=== PATIENT | male | born 1940 | race Caucasian/White ===

== ENCOUNTER 2016-10-15 19:29 | Inpatient (IN) ==
[2016-10-15] MEDS ORDERED: DOCUSATE SODIUM 100 MG CAPSULE PO PRN (21:38)
[2016-10-15] MEDS ORDERED: MAGNESIUM SULF RIDER 4 GM in PREMIX 1 EACH IV PRN (21:38)
[2016-10-15] MEDS ORDERED: ONDANSETRON 4 MG/2 ML VIAL IV PRN (21:38)
[2016-10-15] MEDS ORDERED: MAGNESIUM SULF RIDER 2 GM in PREMIX 1 EACH IV PRN (21:38)
[2016-10-15] MEDS ORDERED: POTASSIUM CHLORIDE RIDER 10 MEQ in PREMIX 1 EACH IV PRN (21:38)
[2016-10-15] MEDS ORDERED: MORPHINE 2 MG/1 ML SYRINGE IV PRN (21:38)
[2016-10-15] MEDS ORDERED: ZALEPLON 5 MG CAPSULE PO PRN (21:38)
[2016-10-15] MEDS ORDERED: NITROGLYCERIN SL 0.4 MG TABLET SL PRN (21:41)
[2016-10-15 21:52] LABS: Basophils % 0.3 % (0.0-0.8); Eosinophils # 0.1 10*3/uL (0.0-0.87); Eosinophils % 1.9 % (0.00-10.9); Hematocrit 23.2 VOL% (42.0-52.0); Hemoglobin 7.4 GM/DL (14.0-18.0); Immature Granulocytes % 0.5 %; Immature Granulocytes Absolute 0.03 #; Lymphocytes # 1.5 10*3/uL (1.4-4.0); Lymphocytes % 23.2 % (21.2-54.2); Mean Corpuscular HGB Conc 31.9 GM/DL (32-36); Mean Corpuscular Hemoglobin 20 PG (27-34); Mean Corpuscular Volume 61.9 FL (87-102); Mean Platelet Volume 9.4 FL (9.6-12.0); Monocytes # 0.8 10*3/uL (0.11-0.8); Monocytes % 12.1 % (1.7-12.7); Platelet Count 184 T/CUMM (130-400); Red Blood Count 3.75 MC/CUMM (3.8-5.5); Red Cell Distribution Width 18.6 % (9.3-17.3); White Blood Count 6.4 T/CUMM (4-12)
[2016-10-15 22:15] LABS: Alanine Aminotransferase 19 U/L (16-61); Albumin 3.4 G/DL (3.4-5.0); Alkaline Phosphatase 67 U/L (45-117); Aspartate Amino Transferase 25 U/L (0-37); Bilirubin,Total < 0.39 MG/DL (0.2-1.0); Blood Urea Nitrogen 13 MG/DL (7-18); Calcium 8.6 MG/DL (8.5-10.1); Glucose 98 MG/DL (74-106); Osmolality,Calculated 267.2 MOS/KG (273-304); Potassium 4.3 MMOL/L (3.5-5.1); Sodium 134 MMOL/L (136-145); Total Protein 7.7 G/DL (6.4-8.3)
[2016-10-15 22:16] LABS: Troponin I Only 0.523 NG/ML (0.00-0.045)
[2016-10-16] MEDS: ACETAMINOPHEN 325 MG TABLET PO PRN ×2 (04:52→17:06)
[2016-10-16 05:57] LABS: % Iron Saturation 4.1 % (18-50)
[2016-10-16 05:59] LABS: Cholesterol 125 MG/DL (50-200); HDL Cholesterol 81 MG/DL (40-60); Risk Ratio 1.54; Triglycerides 24 MG/DL (2-150); VLDL CHOLESTEROL 4.8 MG/DL
[2016-10-16 06:16] LABS: Folate 16.8 NG/ML (5.4-24.0)
--- NOTE | 2016-10-16 06:16 | EKG Report ---
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
--- NOTE | 2016-10-16 07:12 | XRay Report ---
XR chest 1V portable Indication: Shortness of breath Comparison: 25 April 2016 Findings: The heart and mediastinum are normal in size and configuration. The pulmonary vascularity is normal in caliber. No lung infiltrates, effusions, pneumothorax or other abnormality is demonstrated. Impression: No acute cardiopulmonary disease. PROCEDURE INTERPRETED AT [facility] DEPARTMENT OF RADIOLOGY Final Report Signed by: Dr. Karlo Ballesteros
--- NOTE | 2016-10-16 07:31 | EKG Report ---
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
[2016-10-16 08:18] LABS: Basophils % 0.4 % (0.0-0.8); Eosinophils # 0.1 10*3/uL (0.0-0.87); Eosinophils % 1.5 % (0.00-10.9); Hematocrit 23.1 VOL% (42.0-52.0); Hemoglobin 7.2 GM/DL (14.0-18.0); Immature Granulocytes % 0.2 %; Immature Granulocytes Absolute 0.01 #; Lymphocytes % 22.1 % (21.2-54.2); Mean Corpuscular HGB Conc 31.2 GM/DL (32-36); Mean Corpuscular Hemoglobin 20 PG (27-34); Mean Corpuscular Volume 63.1 FL (87-102); Mean Platelet Volume 10.4 FL (9.6-12.0); Monocytes # 0.8 10*3/uL (0.11-0.8); Monocytes % 17.3 % (1.7-12.7); Neutrophils # 2.7 10*3/uL (1.4-7.4); Neutrophils % 58.5 % (38.7-73.9); Platelet Count 193 T/CUMM (130-400); Red Blood Count 3.66 MC/CUMM (3.8-5.5); Red Cell Distribution Width 18.6 % (9.3-17.3); White Blood Count 4.6 T/CUMM (4-12)
[2016-10-16] MEDS ORDERED: SODIUM CHLORIDE 0.9% 250 ML IV PRN (08:39)
--- NOTE | 2016-10-16 08:39 | Cardiology History & Physical ---
Assessment and Plan - Time spent with patient Time spent with patient: Greater than 30 minutes (1) Anemia Status: Acute Assessment and plan: SEE PLAN OF CARE LISTED BELOW. Current Visit: Yes Qualifiers: Anemia type: iron deficiency (2) Dyslipidemia Status: Chronic Assessment and plan: SEE PLAN OF CARE LISTED BELOW. Current Visit: Yes (3) Chest pain Status: Acute Assessment and plan: SEE PLAN OF CARE LISTED BELOW. Current Visit: Yes (4) Shortness of breath Status: Acute Assessment and plan: SEE PLAN OF CARE LISTED BELOW. Current Visit: Yes (5) HTN (hypertension) Status: Chronic Assessment and plan: SEE PLAN OF CARE LISTED BELOW. Current Visit: No (6) Diverticulitis Status: Chronic Assessment and plan: SEE PLAN OF CARE LISTED BELOW. Current Visit: Yes (7) GERD (gastroesophageal reflux disease) Status: Chronic Assessment and plan: SEE PLAN OF CARE LISTED BELOW. Current Visit: Yes (8) COPD (chronic obstructive pulmonary disease) Status: Chronic Assessment and plan: SEE PLAN OF CARE LISTED BELOW. Current Visit: No (9) Former smoker Status: Chronic Assessment and plan: SEE PLAN OF CARE LISTED BELOW. Current Visit: Yes (10) Family history of early CAD Status: Chronic Assessment and plan: SEE PLAN OF CARE LISTED BELOW. Current Visit: Yes (11) PAD (peripheral artery disease) Status: Chronic Assessment and plan: SEE PLAN OF CARE LISTED BELOW. Current Visit: Yes History of Present Illness Chief complaint: Chest pain History of present illness: Order Runner: Dr. Cruz Mr. Shen is a 75 year old male with known history of coronary artery disease, routinely followed by Dr. Cruz. Patient has cardiac risk factors significant for hypertension, dyslipidemia, former smoker (quit in 1997) and family history of coronary artery disease (brother had CABG). Patient has past medical history of bilateral carotid artery stenosis, PAD and bilateral lower extremities, COPD, diverticulitis and GI bleeding. Patient's most recent carotid ultrasound was performed March 2016. This revealed mild luminal stenosis of the left proximal internal carotid artery (16-49%. The right internal carotid artery demonstrates no significant luminal stenosis but scattered arthrosclerotic plaque was noted. Patient underwent cardiac stress testing at the [facility] clinic February 2016. This revealed small fixed perfusion abnormality of mild intensity in the apical segment. Likely due to subdiaphragmatic artifact. Left ventricular ejection fraction calculated to be 70% with normal global function. No recent echocardiogram noted. Patient has never underwent cardiac stress testing. Patient was last seen in the cardiology clinic by Dr. Cruz September 2016. Patient was transferred from [place] emergency department for chest pain. He reports that he developed chest pain yesterday while getting ready for jehovah's witness. He describes this pain as a tightness located all across his chest. Radiated down his right arm. Associated with shortness of breath and nausea. Denies diaphoresis, heart racing and palpitations. He is unable to identify any specific alleviating or aggravating factors. He reports that it was not worsened with exertion. This was intermittent for the rest of the day. He reports that his pain was off and on. Then later that night it became progressively worse. Rates his pain an 8 out of 10. He could no longer tolerate the chest discomfort he felt that he needed to be seen in the emergency department. He denies any bright red blood per rectum, melena, abdominal pain, hematochezia, fever, chills, cough, lower extremity edema, orthopnea and PND. He does report a worsening of his dyspnea. He does have COPD and has chronic dyspnea. However, he does confirm that this has been a little worse lately. He presented to [place] ER. No records available from [place] emergency room. No report was given to [facility] staff. Unsure of what medications he received at that facility. However, per patient report his chest pain resolved approximately 30 minutes after receiving nitroglycerin and IV morphine. He has not experienced any recurrent chest pain. He was transferred to [facility] for further evaluation. Patient has been admitted under cardiology's service. Housed in the CCU. Patient was seen and examined in the CCU. He is sitting up in bed in no acute distress. He is without chest pain, heaviness and tightness. Continues to complain of mild shortness of breath. BNP 302. Chest x-ray without overt heart failure. CBC was drawn in our facility and revealed severe anemia. H&H 7.4 and 23.2. Patient denies any bright red blood per rectum or recent melena. He does report that he has had this problem in the past and had significant GI workup completed in April. He underwent EGD and C scope. C scope revealed diverticulitis. EGD revealed GERD and mild gastritis. Patient has profound anemia with H&H of 7 and 23. This explains patient's shortness of breath as well as elevated troponin. I will transfuse patient with 2 units of packed red blood cells. Check stool for occult blood. Anemia profile. Consult GI. Will continue to cycle cardiac biomarkers and EKG. Once his anemia improves if patient continues to have complaints of chest pain. We can consider further cardiac workup at that time. N.p.o. until seen by gastroenterology. Will discuss with Dr. Calderon and await his additional recommendations. ASSESSMENT/PLAN 1. SYMPTOMATIC ANEMIA WITH DEMAND ISCHEMIA - Patient has profound anemia with H&H of 7 and 23. This explains patient's shortness of breath as well as elevated troponin. I will transfuse patient with 2 units of packed red blood cells. Check stool for occult blood. Anemia profile. Consult GI. Will continue to cycle cardiac biomarkers and EKG. Once his anemia improves if patient continues to have complaints of chest pain. We can consider further cardiac workup at that time. N.p.o. until seen by gastroenterology. I will discuss with Dr. Calderon and await his additional recommendations. 2. HISTORY OF DIVERTICULITIS - Defer management to gastroenterology. 3. HYPERTENSION - Under well control. Will reinitiate patient's home medications and adjust as needed this hospitalization. 4. DYSLIPIDEMIA - Lipid lowering agent has been continued. Lipid panel in the morning. 5. HISTORY OF GERD - Continue PPI 6. HISTORY OF COPD - Clinically stable at present. 7. FORMER SMOKER - Quit in 1997. 8. FAMILY HISTORY OF CAD - Brother had CABG. 9. HISTORY OF PERIPHERAL ARTERY DISEASE - Followed by Dr. Cruz. Clinically stable at present. Continue current plan of care. Home Medications Medication Instructions Recorded Confirmed Type Aspirin EC Tab 81 mg PO DAILY 04/25/16 04/25/16 History Atorvastatin [Lipitor] 40 mg PO DAILY 04/25/16 04/25/16 History Magnesium 250 mg PO DAILY 04/25/16 04/25/16 History Omeprazole [Prilosec] 20 mg PO BID 04/25/16 04/25/16 History Timolol 0.5% Oph Soln [Timoptic 1 drop BOTH EYES DAILY 04/25/16 04/25/16 History 0.5%] Tiotropium Inhalation [Spiriva 18 mcg INH DAILY 04/25/16 04/25/16 History Handihaler] Valsartan [Diovan] 320 mg PO DAILY 04/25/16 04/25/16 History amLODIPine [Norvasc] 5 mg PO DAILY 04/25/16 04/25/16 History amLODIPine [Norvasc] 10 mg PO DAILY 04/25/16 04/25/16 History Pantoprazole Tab [Protonix Tab] 40 mg PO DAILY #30 tablet 05/01/16 Rx Allergies Allergy/AdvReac Type Severity Reaction Status Date / Time No Known Allergies Allergy Verified 04/25/16 07:39 - Constitutional Constitutional: Present: as per HPI, fatigue, lethargy, malaise, weakness. Absent: chills, fever(s), weight gain, weight loss - Cardiovascular Cardiovascular: Present: as per HPI, chest pain at rest, dyspnea, dyspnea on exertion, radiating jaw, neck or arm pain. Absent: diaphoresis, edema, orthopnea, palpitations, PND - Respiratory Respiratory: Present: as per HPI, dyspnea, dyspnea on exertion. Absent: cough, hemoptysis, pain on inspiration, change in phlegm color - Gastrointestinal Gastrointestinal: Present: as per HPI, heartburn, nausea. Absent: abdominal pain, coffee ground emesis, constipation, cramping, diarrhea, hematemesis, hematochezia, loose stools, melena, vomiting Medical,Surgical,& Family Hx - Medical History Cardio: History of: Hypertension Endocrine: History of: Dyslipidemia Rheumatology: History of;: Rheumatoid Arthritis Respiratory: History of: COPD Gastrointestinal: History of: Diverticulitis/ Diverticulosis, GERD, Polyps - Surgical History Abdominal Surgeries: Surgical HX of: Appendectomy - Family History Family History: Reports;: Family Cancer (father), Family Heart Disease, Family Hypertension - Social History Smoking Status: Former smoker Frequency of Alcohol Use: None Type of Drug Use: None Marital Status: Lives With:: Spouse Functional capacity: independent ambulation Cardiology Physical Exam - Constitutional Vitals: Vital Signs Temp Pulse Resp BP Pulse Ox 99.3 F 94 H 16 115/68 97 10/16/16 08:00 10/16/16 08:00 10/16/16 08:00 10/16/16 08:00 10/16/16 08:00 Intake and Output 10/15/16 10/16/16 10/16/16 22:59 06:59 14:59 Output Total 1400 / 1400 Balance -1400 / -1400 Output: Urine 1400 / 1400 Other: Voiding Method Toilet Urinal # Voids 0 2 # Bowel Movements 0 Weight 172 lb 9.951 oz 175 lb 0.752 oz Exam: General: Appears well with no apparent distress. Pleasant and cooperative. Appears comfortable. HEENT: PERRL, normocephalic, atraumatic. Mucous membranes moist. No jaundice noted. Conjunctiva moist and clear, sclerae anicteric Neck: No JVD/HJR, no thyromegaly or lymphadenopathy noted. No carotid bruit appreciated Cardiac: Regular rate and rhythm. Lungs: Clear to auscultation without accessory muscle use to assist the respiratory pattern. Oxygen via nasal cannula Abdomen: Soft, bowel sounds normoactive. Nontender and nondistended. No abdominal bruit or thrill noted. No masses noted. Extremities: No clubbing, cyanosis noted. No edema noted. Upper extremity pulses 2+. Lower extremity pulses 1+. Capillary refill less than 3 seconds. Skin: No unusual lesions or rashes. No skin breakdown appreciated. Neuro: Awake, alert and oriented 3. Moves all extremities well without hemiparesis or paralysis. No essential tremor is appreciated. Result/EKG - Labs CBC & BMP: 10/16/16 04:31 10/15/16 21:48 Lab Results: I have reviewed the past 24 hour labs Labs: Laboratory Results - last 24 hr 10/15/16 10/15/16 10/15/16 21:48 21:48 21:48 WBC 6.4 RBC 3.75 L Hgb 7.4 L Hct 23.2 L MCV 61.9 L MCH 20 L MCHC 31.9 L RDW 18.6 H Plt Count 184 MPV 9.4 L Neut % (Auto) 62.0 Lymph % (Auto) 23.2 Ness % (Auto) 12.1 Eos % (Auto) 1.9 Baso % (Auto) 0.3 Neut # (Auto) 4.0 Lymph # (Auto) 1.5 Ness # (Auto) 0.8 Eos # (Auto) 0.1 Baso # (Auto) 0.0 Immature Gran % 0.5 Nucleated RBC % 0.0 Immature Gran # 0.03 Nucleated RBCs # 0.00 Immature Plt Fraction 0.0 Absolute Retic Percent Retic Retic Hgb Equivalent Sodium 134 L Potassium 4.3 Chloride 99 Carbon Dioxide 24 Anion Gap 15.3 H BUN 13 Creatinine 0.70 GFR Calculation 106 BUN/Creatinine Ratio 18.00 Glucose 98 Calculated Osmolality 267.2 L Calcium 8.6 Magnesium 2.0 Iron TIBC % Saturation Ferritin Total Bilirubin < 0.39 AST 25 ALT 19 Alkaline Phosphatase 67 Total Creatine Kinase 67 CK-MB (CK-2) 2.0 Troponin I 0.523 H B-Natriuretic Peptide Total Protein 7.7 Albumin 3.4 Globulin 4.3 H Albumin/Globulin Ratio 0.7 L Triglycerides Cholesterol LDL Cholesterol VLDL Cholesterol HDL Cholesterol Heart Disease Risk Ratio Vitamin B12 Folate Blood Type Antibody Screen 10/15/16 10/16/16 10/16/16 21:48 04:30 04:31 WBC RBC Hgb Hct MCV MCH MCHC RDW Plt Count MPV Neut % (Auto) Lymph % (Auto) Ness % (Auto) Eos % (Auto) Baso % (Auto) Neut # (Auto) Lymph # (Auto) Ness # (Auto) Eos # (Auto) Baso # (Auto) Immature Gran % Nucleated RBC % Immature Gran # Nucleated RBCs # Immature Plt Fraction Absolute Retic 0.0 Percent Retic 1.2 Retic Hgb Equivalent 20.3 L Sodium Potassium Chloride Carbon Dioxide Anion Gap BUN Creatinine GFR Calculation BUN/Creatinine Ratio Glucose Calculated Osmolality Calcium Magnesium Iron TIBC % Saturation Ferritin Total Bilirubin AST ALT Alkaline Phosphatase Total Creatine Kinase CK-MB (CK-2) Troponin I B-Natriuretic Peptide 302 H Total Protein Albumin Globulin Albumin/Globulin Ratio Triglycerides Cholesterol LDL Cholesterol VLDL Cholesterol HDL Cholesterol Heart Disease Risk Ratio Vitamin B12 Folate Blood Type A NEGATIVE Antibody Screen Negative 10/16/16 10/16/16 10/16/16 04:31 04:31 04:31 WBC RBC Hgb Hct MCV MCH MCHC RDW Plt Count MPV Neut % (Auto) Lymph % (Auto) Ness % (Auto) Eos % (Auto) Baso % (Auto) Neut # (Auto) Lymph # (Auto) Ness # (Auto) Eos # (Auto) Baso # (Auto) Immature Gran % Nucleated RBC % Immature Gran # Nucleated RBCs # Immature Plt Fraction Absolute Retic Percent Retic Retic Hgb Equivalent Sodium Potassium Chloride Carbon Dioxide Anion Gap BUN Creatinine GFR Calculation BUN/Creatinine Ratio Glucose Calculated Osmolality Calcium Magnesium Iron 15 L TIBC 370 % Saturation 4.1 L Ferritin 15.0 L Total Bilirubin AST ALT Alkaline Phosphatase Total Creatine Kinase 55 CK-MB (CK-2) 2.5 Troponin I 1.400 H D B-Natriuretic Peptide Total Protein Albumin Globulin Albumin/Globulin Ratio Triglycerides 24 Cholesterol 125 LDL Cholesterol 39.0 VLDL Cholesterol 4.8 HDL Cholesterol 81 H Heart Disease Risk Ratio 1.54 Vitamin B12 199 L Folate 16.8 Blood Type Antibody Screen 10/16/16 10/16/16 04:31 04:31 WBC 4.6 RBC 3.66 L Hgb 7.2 L Hct 23.1 L MCV 63.1 L MCH 20 L MCHC 31.2 L RDW 18.6 H Plt Count 193 MPV 10.4 Neut % (Auto) 58.5 Lymph % (Auto) 22.1 Ness % (Auto) 17.3 H Eos % (Auto) 1.5 Baso % (Auto) 0.4 Neut # (Auto) 2.7 Lymph # (Auto) 1.0 L Ness # (Auto) 0.8 Eos # (Auto) 0.1 Baso # (Auto) 0.0 Immature Gran % 0.2 Nucleated RBC % 0.0 Immature Gran # 0.01 Nucleated RBCs # 0.00 Immature Plt Fraction 4.3 Absolute Retic 0.0 Percent Retic 1.3 Retic Hgb Equivalent 20.3 L Sodium Potassium Chloride Carbon Dioxide Anion Gap BUN Creatinine GFR Calculation BUN/Creatinine Ratio Glucose Calculated Osmolality Calcium Magnesium Iron TIBC % Saturation Ferritin 15.3 L Total Bilirubin AST ALT Alkaline Phosphatase Total Creatine Kinase CK-MB (CK-2) Troponin I B-Natriuretic Peptide Total Protein Albumin Globulin Albumin/Globulin Ratio Triglycerides Cholesterol LDL Cholesterol VLDL Cholesterol HDL Cholesterol Heart Disease Risk Ratio Vitamin B12 Folate Blood Type Antibody Screen
[2016-10-16 08:42] LABS: Folate 15.7 NG/ML (5.4-24.0); Vitamin B12 194 PG/ML (211-911)
[2016-10-16] MEDS ORDERED: PANTOPRAZOLE 40 MG TABLET PO SCH (09:00)
[2016-10-16 09:34] LABS: Sedimentation Rate-Westergren 59 MM/HR (0-20)
[2016-10-16] MEDS: PANTOPRAZOLE 40 MG TABLET PO SCH ×2 (10:00→20:25)
[2016-10-16 10:06] LABS: Band Neutrophils 1 % (0-10); Hypochromasia 2+; Lymphocytes 24 % (20-55); Segmented Neutrophils 63 % (50-85); Total Cells Counted 100
[2016-10-16 10:07] LABS: Microcytosis 1+; Platelet Estimate Adequate; Target Cells Slight
--- NOTE | 2016-10-16 12:10 | Gastrointestinal Consult Note ---
<Fide Reyes - Last Filed: 10/16/16 11:49> Assessment and Plan (1) Anemia Status: Acute Assessment and plan: 10/16-onset of chest pain with nausea and radiation down arms with findings on admission of anemia with H&H of 09/28. Being transfused 2 units of packed red blood cells. Prior history of anemia and diverticular bleeding in the past. Recent endoscopy done in April of this year. Keep patient n.p.o. at present time and will proceed with small bowel pill camera endoscopy today. May resume diet post PillCam. Plan an addendum to follow by Dr. Pro. Current Visit: Yes Qualifiers: Anemia type: iron deficiency History of Present Illness Chief complaint: Anemia, chest pain History of present illness: Mr. Shen is a 75 year old male who was admitted to the hospital today following transfer from [place] emergency room with onset of chest pain. Patient states that he was in his usual state of health until last night when he had a sudden onset of chest tightness with shortness of breath and nausea. He states the pain also radiated down his arm at that time. Patient is unable to recall any precipitating factors prior to the onset of the pain. He states after the onset of the pain, it became more intermittent throughout the day however last night the pain returned and was worse in severity. He then proceeded to walk into the emergency room for further evaluation. He has a prior history of hypertension, COPD, dyslipidemia, and PAD. He also has a prior history of diverticulitis and GI bleeding. Upon arrival to [place], he was given nitroglycerin and morphine and his pain was alleviated at that time. Since arrival to our facility he has been evaluated by cardiology. He was also found on admission to have an H&H of 09/28. Iron studies have been done today noted to have an iron of 15, TIBC of 370, saturation of 4.1, and a ferritin of 15.3. He is currently receiving 2 units of packed red blood cells. He was seen in our facility in April of this year with a rectal bleed at that time underwent colonoscopy with no bleeding source identified at that time however he had a poor prep. This was repeated the second day and findings at that time of diverticulosis which was felt to be the likely source of bleeding as well as colon polyp with pathology of tubular adenoma. He also underwent EGD at that time with findings of GERD, mild gastritis. He had plans upon discharge for small bowel series however this unfortunately was not done outpatient as planned. His discharge H&H in April was noted at 12/05. He does not take any anticoagulants and denies any NSAID use. Noted to take Prilosec daily and denies any increase dyspepsia or upper GI discomfort. Home Medications Medication Instructions Recorded Confirmed Type Aspirin EC Tab 81 mg PO DAILY 04/25/16 10/16/16 History Atorvastatin [Lipitor] 40 mg PO DAILY 04/25/16 10/16/16 History Magnesium 250 mg PO DAILY 04/25/16 10/16/16 History Omeprazole [Prilosec] 20 mg PO BID 04/25/16 10/16/16 History Timolol 0.5% Oph Soln [Timoptic 1 drop BOTH EYES DAILY 04/25/16 10/16/16 History 0.5%] Tiotropium Inhalation [Spiriva 18 mcg INH DAILY 04/25/16 10/16/16 History Handihaler] Valsartan [Diovan] 320 mg PO DAILY 04/25/16 10/16/16 History amLODIPine [Norvasc] 10 mg PO DAILY 04/25/16 10/16/16 History Allergies Allergy/AdvReac Type Severity Reaction Status Date / Time No Known Allergies Allergy Verified 04/25/16 07:39 Medical,Surgical,& Family Hx - Medical History Cardio: History of: Hypertension Endocrine: History of: Dyslipidemia Rheumatology: History of;: Rheumatoid Arthritis Respiratory: History of: COPD Gastrointestinal: History of: Diverticulitis/ Diverticulosis, GERD, Polyps - Surgical History Abdominal Surgeries: Surgical HX of: Appendectomy - Family History Family History: Reports;: Family Cancer (father), Family Heart Disease, Family Hypertension - Social History Smoking Status: Former smoker Frequency of Alcohol Use: None Type of Drug Use: None 12 point system: reviewed and no additional remarkable complaints except as stated - Constitutional Constitutional: Present: as per HPI - EENT Eyes: Present: as per HPI Ears: Present: as per HPI Nose, mouth and throat: Present: as per HPI - Cardiovascular Cardiovascular: Present: as per HPI, chest pain at rest - Respiratory Respiratory: Present: as per HPI - Gastrointestinal Gastrointestinal: Present: as per HPI, nausea - Genitourinary Genitourinary: Present: as per HPI - Musculoskeletal Musculoskeletal: Present: as per HPI - Neurological Neurological: Present: as per HPI - Psychiatric Psychiatric: Present: as per HPI - Endocrine Endocrine: Present: as per HPI - Hematologic/Lymphatic Hematologic/Lymphatic: Present: as per HPI Exam - Constitutional Vitals: Period Temp Pulse Resp BP Sys/Joya Pulse Ox Last 24 Hr 99.3 F-99.8 F 89-104 16-21 100-142/60-86 97-100 General appearance: normal weight, no acute distress - Head Head exam: Present: normal inspection, normocephalic - Eye Eye exam: Present: other (Lids and conjunctive are unremarkable). Absent: scleral icterus - ENT ENT exam: Present: normal exam, normal oropharynx - Neck Neck exam: Present: normal inspection - Respiratory Respiratory exam: Present: clear to auscultation bilaterally. Absent: rales, rhonchi, wheezes - Cardiovascular Cardiovascular exam: Present: regular rate and rhythm. Absent: diastolic murmur , JVD, systolic murmur - GI/Abdominal GI/Abdominal exam: Present: normal bowel sounds, soft. Absent: ascites, distended, mass, organomegaly, tenderness - Extremities Exam Extremities exam: Present: normal inspection, full ROM - Back Exam Back exam: Present: normal inspection - Neurological Exam Neurological exam: Present: alert, oriented X3 - Psychiatric Psychiatric exam: Present: normal affect, normal mood - Skin Skin exam: Present: normal color, warm, dry Results - Labs CBC & BMP: 10/16/16 04:31 10/15/16 21:48 Lab Results: I have reviewed the past 24 hour labs Specialty Discharge - Follow Up or Referrals <Jeovanny Pro - Last Filed: 10/16/16 17:14> History of Present Illness History of present illness: Mr. Shen is a 75 year old male Exam - Constitutional Vitals: Period Temp Pulse Resp BP Sys/Joya Pulse Ox Last 24 Hr 99.2 F-100.2 F 77-104 16-21 100-153/60-87 97-100 Results - Labs CBC & BMP: 10/16/16 15:18 10/15/16 21:48
[2016-10-16 12:47] LABS: Apearance,Urine CLEAR (Clear); Bilirubin,Urine Negative (Negative); Blood, Urine Negative (Negative); Glucose,Urine (UA) Negative (Negative); Ketones,Urine 5 mg/dL (Negative); Nitrite,Urine Negative (Negative); Protein,Urine Negative; Squamous Epithelial Cell,Urine Occasional /HPF (0-10); Urine Color Straw (Yellow); Urine Specific Gravity 1.009 (1.001-1.035); Urine Urobilinogen < 2.0 EU/DL (0.2-1.0)
--- NOTE | 2016-10-16 13:58 | ECHO Report ---
Edward Shen Exam Date: 10/16/2016 09:30 Referring Physician: Technologist: Age: 75 Ht (in): Wt (lb): Gender: M Exam Location: [facility] Echo Indications: BP: / HR: Rhythm: Sinus Technical Quality: IMPRESSIONS Normal left ventricular size, with mild concentric hypertrophy, with normal systolic function. Estimated left ventricular ejection fraction 60%. Grade 1 diastolic dysfunction. The left atrium is mildly dilated. Mildly thickened mitral valve, with mild eccentric regurgitation, without stenosis. Aortic valve sclerosis, without stenosis, with mild insufficiency MEASUREMENTS (Male / Female) Normal Values 2D ECHO LV Diastolic Diameter PLAX 3.8 cm 4.2 - 5.9 / 3.9 - 5.3 cm LV Systolic Diameter PLAX 3.2 cm LV Fractional Shortening PLAX 16.5 % IVS Diastolic Thickness 0.9 cm 0.6 - 1.0 / 0.6 - 0.9 cm LVPW Diastolic Thickness 1.2 cm 0.6 - 1.0 / 0.6 - 0.9 cm RV Internal Dim ED PLAX 2.7 cm Aortic Root Diameter 3.2 cm LA Systolic Diameter LX 4.1 cm 3.0 - 4.0 / 2.7 - 3.8 cm DOPPLER TR Peak Velocity 175.0 cm/s TR Peak Gradient 12.3 mmHg FINDINGS Left Ventricle Normal left ventricular size, with mild concentric hypertrophy, with normal systolic function. Estimated left ventricular ejection fraction 60%. Grade 1 diastolic dysfunction. Right Ventricle The right ventricle is normal in size, with normal systolic function Right Atrium The right atrium is normal in size. Left Atrium The left atrium is mildly dilated. Mitral Valve Mildly thickened mitral valve, with mild eccentric regurgitation, without stenosis. Aortic Valve Aortic valve sclerosis, without stenosis, with a mild insufficiency Tricuspid Valve Structurally normal tricuspid valve, with trace insufficiency. Insufficient signal to estimate pulmonary artery systolic pressure. Pulmonic Valve The pulmonic valve is not well visualized. Pericardium No pericardial effusion. Aorta The aortic root is of normal size. Edgar Calderon (Electronically Signed) Final Date: 16 October 2016 13:57
[2016-10-16] MEDS: METOPROLOL TARTRATE 50 MG TABLET PO SCH ×2 (14:12→20:25)
[2016-10-16] MEDS: ATORVASTATIN 40 MG TABLET PO SCH (14:12)
[2016-10-16 15:22] LABS: Hematocrit 28.7 VOL% (42.0-52.0); Hemoglobin 9.4 GM/DL (14.0-18.0)
[2016-10-16] MEDS: MULTIVITAMIN (BEROCCA) TABLET PO SCH (17:06)
[2016-10-16] MEDS: FERROUS SULFATE 325 MG TABLET PO SCH (20:25)
[2016-10-17 04:49] LABS: Basophils % 0.7 % (0.0-0.8); Eosinophils # 0.2 10*3/uL (0.0-0.87); Eosinophils % 2.9 % (0.00-10.9); Hemoglobin 9.6 GM/DL (14.0-18.0); Immature Granulocytes % 0.4 %; Immature Granulocytes Absolute 0.02 #; Lymphocytes # 1.4 10*3/uL (1.4-4.0); Lymphocytes % 25.3 % (21.2-54.2); Mean Corpuscular Hemoglobin 21 PG (27-34); Mean Corpuscular Volume 66.7 FL (87-102); Mean Platelet Volume 9.7 FL (9.6-12.0); Monocytes # 0.8 10*3/uL (0.11-0.8); Monocytes % 15.4 % (1.7-12.7); Neutrophils % 55.3 % (38.7-73.9); Platelet Count 179 T/CUMM (130-400); Red Cell Distribution Width 21.6 % (9.3-17.3); White Blood Count 5.5 T/CUMM (4-12)
[2016-10-17 05:09] LABS: Magnesium 2.2 MG/DL (1.8-2.4); Osmolality,Calculated 265.2 MOS/KG (273-304); Potassium 4.3 MMOL/L (3.5-5.1)
[2016-10-17 06:10] LABS: Hypochromasia 1+; Lymphocytes 25 % (20-55); Segmented Neutrophils 66 % (50-85); Total Cells Counted 100
[2016-10-17 06:11] LABS: Microcytosis 1+
[2016-10-17] MEDS: IPRATROPIUM 500 MCG/2.5 ML NEB RESP TX SCH ×4 (08:36→19:34)
--- NOTE | 2016-10-17 10:01 | Gastrointestinal Progress Note ---
<AmyFide Alcides - Last Filed: 10/17/16 09:58> Assessment and Plan (1) Anemia Status: Acute Assessment and plan: 10/17-H&H stable 12/03 following transfusion. No overt bleeding. Small bowel, results pending. Further plan and addendum to follow by Dr Pro. 10/16-onset of chest pain with nausea and radiation down arms with findings on admission of anemia with H&H of 09/28. Being transfused 2 units of packed red blood cells. Prior history of anemia and diverticular bleeding in the past. Recent endoscopy done in April of this year. Keep patient n.p.o. at present time and will proceed with small bowel pill camera endoscopy today. May resume diet post PillCam. Plan an addendum to follow by Dr. Pro. Current Visit: Yes Qualifiers: Anemia type: iron deficiency Gastroenterology - PN: Subj Interval history: CC: Anemia Patient is seen awake and alert. States he had an uneventful night. Denies any abdominal pain. Denies any nausea or vomiting or overt bleeding. Abdomen is soft, nontender. H&H is stable at 12/06 following 2 units of packed red blood cells on yesterday. Small bowel camera results are currently pending at this time. He is tolerating his diet well. Stools for occult blood are still pending as well. ROS: Denies shortness of breath or chest pain Exam (Progress Note) - Constitutional Vitals: Period Temp Pulse Resp BP Sys/Joya Pulse Ox Last 24 Hr 97.8 F-100.2 F 75-104 16-21 121-153/64-87 96-100 General appearance: normal weight, no acute distress - Head Head exam: Present: normal inspection, normocephalic - Eye Eye exam: Present: other (Lids and identified unremarkable). Absent: scleral icterus - ENT ENT exam: Present: normal exam, normal oropharynx - Neck Neck exam: Present: normal inspection - Respiratory Respiratory exam: Present: clear to auscultation bilaterally. Absent: rales, rhonchi, wheezes - Cardiovascular Cardiovascular exam: Present: regular rate and rhythm. Absent: diastolic murmur , JVD, systolic murmur - GI/Abdominal GI/Abdominal exam: Present: normal bowel sounds, soft. Absent: ascites, distended, mass, organomegaly, tenderness - Extremities Exam Extremities exam: Present: normal inspection, full ROM - Back Exam Back exam: Present: normal inspection - Neurological Exam Neurological exam: Present: alert, oriented X3 - Psychiatric Psychiatric exam: Present: normal affect, normal mood - Skin Skin exam: Present: normal color, warm, dry Results - Labs CBC & BMP: 10/17/16 04:14 10/17/16 04:14 Lab Results: I have reviewed the past 24 hour labs Specialty Discharge - Follow Up or Referrals <Jeovanny Pro - Last Filed: 10/17/16 14:33> Exam (Progress Note) - Constitutional Vitals: Period Temp Pulse Resp BP Sys/Joya Pulse Ox Last 24 Hr 97.8 F-100.2 F 69-95 16-21 121-153/64-87 96-100 Results - Labs CBC & BMP: 10/17/16 04:14 10/17/16 04:14
[2016-10-17] MEDS: ATORVASTATIN 40 MG TABLET PO SCH (10:55)
[2016-10-17] MEDS: FERROUS SULFATE 325 MG TABLET PO SCH ×3 (10:56→21:14)
[2016-10-17] MEDS: VALSARTAN 160 MG TABLET PO SCH (10:56)
[2016-10-17] MEDS: MULTIVITAMIN (BEROCCA) TABLET PO SCH (10:56)
[2016-10-17] MEDS: MAGNESIUM GLUCONATE 500 MG TABLET PO SCH (10:57)
[2016-10-17] MEDS: amLODIPine 10 MG TABLET PO SCH (10:57)
[2016-10-17] MEDS: ASPIRIN EC 81 MG TABLET PO SCH (10:57)
[2016-10-17] MEDS: METOPROLOL TARTRATE 50 MG TABLET PO SCH ×2 (10:58→21:14)
[2016-10-17] MEDS: PANTOPRAZOLE 40 MG TABLET PO SCH ×2 (10:58→21:14)
--- NOTE | 2016-10-17 11:32 | Cardiology Progress Note ---
Assessment and Plan (1) Anemia Status: Acute Assessment and plan: SEE PLAN OF CARE LISTED BELOW. Current Visit: Yes Qualifiers: Anemia type: iron deficiency (2) Dyslipidemia Status: Chronic Assessment and plan: SEE PLAN OF CARE LISTED BELOW. Current Visit: Yes (3) Chest pain Status: Acute Assessment and plan: SEE PLAN OF CARE LISTED BELOW. Current Visit: Yes (4) Shortness of breath Status: Acute Assessment and plan: SEE PLAN OF CARE LISTED BELOW. Current Visit: Yes (5) HTN (hypertension) Status: Chronic Assessment and plan: SEE PLAN OF CARE LISTED BELOW. Current Visit: No (6) Diverticulitis Status: Chronic Assessment and plan: SEE PLAN OF CARE LISTED BELOW. Current Visit: Yes (7) GERD (gastroesophageal reflux disease) Status: Chronic Assessment and plan: SEE PLAN OF CARE LISTED BELOW. Current Visit: Yes (8) COPD (chronic obstructive pulmonary disease) Status: Chronic Assessment and plan: SEE PLAN OF CARE LISTED BELOW. Current Visit: No (9) Former smoker Status: Chronic Assessment and plan: SEE PLAN OF CARE LISTED BELOW. Current Visit: Yes (10) Family history of early CAD Status: Chronic Assessment and plan: SEE PLAN OF CARE LISTED BELOW. Current Visit: Yes (11) PAD (peripheral artery disease) Status: Chronic Assessment and plan: SEE PLAN OF CARE LISTED BELOW. Current Visit: Yes Cardiology - PN: Subj Interval history: Obstetrics And Gynecology Professor: Dr. Cruz SUMMARY Mr. Shen is a 75 year old male with known history of coronary artery disease , routinely followed by Dr. Cruz. Patient has cardiac risk factors significant for hypertension, dyslipidemia, former smoker (quit in 1997) and family history of coronary artery disease (brother had CABG). Patient has past medical history of bilateral carotid artery stenosis, PAD and bilateral lower extremities, COPD, diverticulitis and GI bleeding. Patient's most recent carotid ultrasound was performed March 2016. This revealed mild luminal stenosis of the left proximal internal carotid artery (16-49%. The right internal carotid artery demonstrates no significant luminal stenosis but scattered arthrosclerotic plaque was noted. Patient underwent cardiac stress testing at the [facility] clinic February 2016. This revealed small fixed perfusion abnormality of mild intensity in the apical segment. Likely due to subdiaphragmatic artifact. Left ventricular ejection fraction calculated to be 70% with normal global function. No recent echocardiogram noted. Patient has never underwent cardiac stress testing. Patient was last seen in the cardiology clinic by Dr. Cruz September 2016. He does report that he has had this problem in the past and had significant GI workup completed in April. He underwent EGD and C scope. C scope revealed diverticulitis. EGD revealed GERD and mild gastritis. Patient was transferred from [place] emergency department for chest pain. Upon arrival to our facility he was noted to have profound anemia, H&H 7 and 23. His chest pain was thought to be secondary to demand ischemia. Troponin bumped to 2.0. Patient was given two units of PRBC's yesterday. GI was consulted. Patient had small bowel pill cam yesterday. Results pending. OCTOBER 17, 2016 Patient was seen and examined on the tele unit. He is doing well today and is without complaints. He denies any recurrent chest pain, heaviness or tightness after receiving two units of PRBCs yesterday. H and H improved today to 9.6 and 30.0. Stool for occult blood is pending. Patient reports that he has not had BM this hospitalization. Patient had small bowel pill cam yesterday. Results pending. Troponin peaked at 2.0 yesterday. Now trending down, 1.8 today. This is not ACS. Suspect demand ischemic from profound anemia. Labs have been reviewed. Vitals stable. Will discuss with Dr. Calderon and await his additional recommendations. ASSESSMENT/PLAN 1. SYMPTOMATIC ANEMIA WITH DEMAND ISCHEMIA - H&H improved today to 9.6 and 30.0 after 2 units of PRBCs yesterday. Stool for occult blood is pending. Patient had small bowel pill cam yesterday. Results pending. Troponin peaked at 2.0 yesterday. Now trending down, 1.8 today. This is not ACS. Suspect demand ischemic from profound anemia. Denies any recurrent chest pain. If patient has recurrent complaints of chest pain now that his anemia has improved , we can consider further cardiac workup. Continue to monitor with daily CBC and transfuse as needed. 2. HISTORY OF DIVERTICULITIS - Defer management to gastroenterology. 3. HYPERTENSION - Under well control. Continue current plan of care. Monitor BP and adjust as needed this hospitalization. 4. DYSLIPIDEMIA - Lipid lowering agent has been continued. Lipid panel reviewed. LDL 39 5. HISTORY OF GERD - Continue PPI 6. HISTORY OF COPD - Clinically stable at present. 7. FORMER SMOKER - Quit in 1997. 8. FAMILY HISTORY OF CAD - Brother had CABG. 9. HISTORY OF PERIPHERAL ARTERY DISEASE - Followed by Dr. Cruz. Clinically stable at present. Continue current plan of care. Exam (Progress Note) - Constitutional Vitals: Period Temp Pulse Resp BP Sys/Joya Pulse Ox Last 24 Hr 97.8 F-100.2 F 75-104 16-21 121-153/64-87 96-100 Exam: General: Appears well with no apparent distress. Pleasant and cooperative. Appears comfortable. HEENT: PERRL, normocephalic, atraumatic. Mucous membranes moist. No jaundice noted. Conjunctiva moist and clear, sclerae anicteric Neck: No JVD/HJR, no thyromegaly or lymphadenopathy noted. No carotid bruit appreciated Cardiac: Regular rate and rhythm. Lungs: Clear to auscultation without accessory muscle use to assist the respiratory pattern. Oxygen via nasal cannula Abdomen: Soft, bowel sounds normoactive. Nontender and nondistended. No abdominal bruit or thrill noted. No masses noted. Extremities: No clubbing, cyanosis noted. No edema noted. Upper extremity pulses 2+. Lower extremity pulses 1+. Capillary refill less than 3 seconds. Skin: No unusual lesions or rashes. No skin breakdown appreciated. Neuro: Awake, alert and oriented 3. Moves all extremities well without hemiparesis or paralysis. No essential tremor is appreciated. Result/EKG - Labs CBC & BMP: 10/17/16 04:14 10/17/16 04:14 Lab Results: I have reviewed the past 24 hour labs Labs: Laboratory Results - last 24 hr 10/16/16 10/16/16 10/16/16 04:31 04:31 08:39 WBC RBC Hgb Hct MCV MCH MCHC RDW Plt Count MPV Neut % (Auto) Lymph % (Auto) [place] % (Auto) Eos % (Auto) Baso % (Auto) Neut # (Auto) Lymph # (Auto) [place] # (Auto) Eos # (Auto) Baso # (Auto) Total Counted Immature Gran % Nucleated RBC % Immature Gran # Segmented Neutrophils Lymphocytes Monocytes Nucleated RBCs # Anemia Panel Interp See comment Immature Plt Fraction Hypochromasia Microcytosis Morphology Comment Hemoglobin A1 98.0 Hemoglobin A2 2.0 Hemoglobin C Not Reportable Hemoglobin D Not Reportable Hemoglobin E Not Reportable Hemoglobin F (ELP) Not Reportable Hemoglobin G Not Reportable Hemoglobin S Not Reportable Hgb ELP Interp See comment Sodium Potassium Chloride Carbon Dioxide Anion Gap BUN Creatinine GFR Calculation BUN/Creatinine Ratio Glucose Calculated Osmolality Calcium Magnesium Total Creatine Kinase CK-MB (CK-2) Troponin I Urine Color Urine Appearance Urine pH Ur Specific [place] Urine Protein Urine Glucose (UA) Urine Ketones Urine Blood Urine Nitrate Urine Bilirubin Urine Urobilinogen Urine Leukocytes Ur Squamous Epith Cells Ur Culture Indicated? Crossmatch See Detail 10/16/16 10/16/16 10/16/16 12:25 12:26 15:18 WBC RBC Hgb 9.4 L D Hct 28.7 L MCV MCH MCHC RDW Plt Count MPV Neut % (Auto) Lymph % (Auto) [place] % (Auto) Eos % (Auto) Baso % (Auto) Neut # (Auto) Lymph # (Auto) [place] # (Auto) Eos # (Auto) Baso # (Auto) Total Counted Immature Gran % Nucleated RBC % Immature Gran # Segmented Neutrophils Lymphocytes Monocytes Nucleated RBCs # Anemia Panel Interp Immature Plt Fraction Hypochromasia Microcytosis Morphology Comment Hemoglobin A1 Hemoglobin A2 Hemoglobin C Hemoglobin D Hemoglobin E Hemoglobin F (ELP) Hemoglobin G Hemoglobin S Hgb ELP Interp Sodium Potassium Chloride Carbon Dioxide Anion Gap BUN Creatinine GFR Calculation BUN/Creatinine Ratio Glucose Calculated Osmolality Calcium Magnesium Total Creatine Kinase 55 CK-MB (CK-2) 1.9 Troponin I 2.090 H D Urine Color Straw Urine Appearance Clear Urine pH 7.0 Ur Specific [place] 1.009 Urine Protein Negative Urine Glucose (UA) Negative Urine Ketones 5 Urine Blood Negative Urine Nitrate Negative Urine Bilirubin Negative Urine Urobilinogen < 2.0 H Urine Leukocytes Negative Ur Squamous Epith Cells Occasional Ur Culture Indicated? Not indicated Crossmatch 10/16/16 10/17/16 10/17/16 20:00 04:14 04:14 WBC 5.5 RBC 4.50 D Hgb 9.6 L Hct 30.0 L MCV 66.7 L MCH 21 L MCHC 32.0 RDW 21.6 H Plt Count 179 MPV 9.7 Neut % (Auto) 55.3 Lymph % (Auto) 25.3 [place] % (Auto) 15.4 H Eos % (Auto) 2.9 Baso % (Auto) 0.7 Neut # (Auto) 3.0 Lymph # (Auto) 1.4 [place] # (Auto) 0.8 Eos # (Auto) 0.2 Baso # (Auto) 0.0 Total Counted 100 Immature Gran % 0.4 Nucleated RBC % 0.0 Immature Gran # 0.02 Segmented Neutrophils 66 Lymphocytes 25 Monocytes 9 Nucleated RBCs # 0.00 Anemia Panel Interp Immature Plt Fraction 0.0 Hypochromasia 1+ Microcytosis 1+ Morphology Comment Hemoglobin A1 Hemoglobin A2 Hemoglobin C Hemoglobin D Hemoglobin E Hemoglobin F (ELP) Hemoglobin G Hemoglobin S Hgb ELP Interp Sodium 134 L Potassium 4.3 Chloride 101 Carbon Dioxide 27 Anion Gap 10.3 BUN 8 Creatinine 0.70 GFR Calculation 107 BUN/Creatinine Ratio 11.00 Glucose 95 Calculated Osmolality 265.2 L Calcium 9.0 Magnesium 2.2 Total Creatine Kinase 43 D CK-MB (CK-2) 1.1 Troponin I 1.810 H Urine Color Urine Appearance Urine pH Ur Specific [place] Urine Protein Urine Glucose (UA) Urine Ketones Urine Blood Urine Nitrate Urine Bilirubin Urine Urobilinogen Urine Leukocytes Ur Squamous Epith Cells Ur Culture Indicated? Crossmatch Specialty Discharge - Follow Up or Referrals
[2016-10-17] MEDS: TIMOLOL 0.5% OPH SOLN 5 ML BOTTLE BOTH EYES SCH (11:50)
[2016-10-17] MEDS ORDERED: SODIUM CHLORIDE 0.9% 250 ML IV PRN (13:33)
[2016-10-18 03:27] LABS: Basophils % 0.7 % (0.0-0.8); Eosinophils # 0.2 10*3/uL (0.0-0.87); Eosinophils % 3.9 % (0.00-10.9); Hematocrit 32.2 VOL% (42.0-52.0); Hemoglobin 10.1 GM/DL (14.0-18.0); Immature Granulocytes % 0.3 %; Immature Granulocytes Absolute 0.02 #; Lymphocytes # 1.9 10*3/uL (1.4-4.0); Lymphocytes % 30.2 % (21.2-54.2); Mean Corpuscular HGB Conc 31.4 GM/DL (32-36); Mean Corpuscular Hemoglobin 21 PG (27-34); Mean Corpuscular Volume 67.1 FL (87-102); Monocytes # 1.1 10*3/uL (0.11-0.8); Monocytes % 17.6 % (1.7-12.7); Neutrophils # 2.9 10*3/uL (1.4-7.4); Neutrophils % 47.3 % (38.7-73.9); Platelet Count 204 T/CUMM (130-400); Red Cell Distribution Width 22.5 % (9.3-17.3); White Blood Count 6.2 T/CUMM (4-12)
[2016-10-18 03:47] LABS: Calcium 8.9 MG/DL (8.5-10.1); Osmolality,Calculated 268.1 MOS/KG (273-304); Potassium 3.9 MMOL/L (3.5-5.1)
[2016-10-18 05:07] LABS: Acanthocytes Few; Eosinophils 4 % (0-10); Hypochromasia 2+; Lymphocytes 26 % (20-55); Ovalocytes 1+; Platelet Estimate Normal; Segmented Neutrophils 52 % (50-85); Target Cells 1+; Total Cells Counted 100
[2016-10-18] MEDS: IPRATROPIUM 500 MCG/2.5 ML NEB RESP TX SCH ×2 (07:56→11:17)
[2016-10-18 08:10] VITALS: BP 141/80
[2016-10-18] MEDS: MAGNESIUM GLUCONATE 500 MG TABLET PO SCH (09:30)
[2016-10-18] MEDS: TIMOLOL 0.5% OPH SOLN 5 ML BOTTLE BOTH EYES SCH (09:30)
[2016-10-18] MEDS: VALSARTAN 160 MG TABLET PO SCH (09:31)
[2016-10-18] MEDS: FERROUS SULFATE 325 MG TABLET PO SCH (09:32)
[2016-10-18] MEDS: METOPROLOL TARTRATE 50 MG TABLET PO SCH (09:32)
[2016-10-18] MEDS: ATORVASTATIN 40 MG TABLET PO SCH (09:32)
[2016-10-18] MEDS: MULTIVITAMIN (BEROCCA) TABLET PO SCH (09:33)
[2016-10-18] MEDS: ASPIRIN EC 81 MG TABLET PO SCH (09:33)
[2016-10-18] MEDS: PANTOPRAZOLE 40 MG TABLET PO SCH (09:33)
[2016-10-18] MEDS: amLODIPine 10 MG TABLET PO SCH (09:33)
--- NOTE | 2016-10-18 10:47 | Discharge Summary ---
Hospital Course - Hospital Course Hospital Course: 75-year-old male, followed by Dr. Cruz. He was admitted with chest pain, was found to have severe anemia, and mild demand ischemia, without EKG changes. Had prior stress test, which showed fixed perfusion defect. Ejection fraction is normal in echo. He had prior GI workup for iron deficiency anemia, diverticulosis, but no definite bleeding source was identified so far. Workup for suspected small bowel bleeding source is in progress. Hematocrit improved and he became asymptomatic after transfusion of 2 PRBCs. -Continue aspirin. I would keep at least single antiplatelet therapy for the CAD, as had demand ischemia, with moderately severe anemia. There were no signs of active bleeding during this hospital stay. -Started metoprolol 50 mg twice daily. -Continue statin -ESR elevated. If GI workup unremarkable, he may need malignancy workup -Iron deficiency. Start iron and vitamin supplements. If inadequate response, may consider hem/onc consult for IV supplementation and anemia workup -Follow-up with Dr. Cruz in 1 week, with CBC. -Follow-up with Dr. Pro in 2 weeks Diagnosis - Discharge Diagnosis (1) Lower gastrointestinal hemorrhage Status: Acute (2) HTN (hypertension) Status: Chronic (3) Anemia Status: Acute (4) Chest pain Status: Acute (5) Shortness of breath Status: Acute (6) Former smoker Status: Chronic (7) Family history of early CAD Status: Chronic (8) PAD (peripheral artery disease) Status: Chronic Specialty Discharge - Follow Up or Referrals - Speciality Discharge Instructions Gastroenterology Instructions: dr. Pro 2 weeks Discharge Plan - Discharge Data Disposition: Disch To Home/Self Care Condition at Discharge: Stable Discharge Diet: advance to your usual diet Activity: resume usual activities as tolerated Hygiene: no restrictions Weight Bearing at Discharge: full weight bearing Driving: no restrictions Contact your physician if you experience:: fever over 101, Difficulty voiding, Redness or swelling, Nausea/Vomiting, Shortness of breath, Bleeding, pain uncontrolled by pain medications - Discharge Medications New Metoprolol Tartrate Tab [Lopressor Tab] 50 mg PO BID #60 tablet Multivitamin (Berocca) [Berocca] 1 tablet PO DAILY #30 tablet Pantoprazole Tab [Protonix Tab] 40 mg PO BID #60 tablet Ferrous Sulfate ER Tab [Slow Fe] 140 mg PO BID #60 tablet Nitroglycerin Sl Tab [Nitrostat] 0.4 mg SL Q5M PRN #30 tablet PRN Reason: Chest Pain Continue Atorvastatin [Lipitor] 40 mg PO DAILY Tiotropium Inhalation [Spiriva Handihaler] 18 mcg INH DAILY Timolol 0.5% Oph Soln [Timoptic 0.5%] 1 drop BOTH EYES DAILY amLODIPine [Norvasc] 10 mg PO DAILY Valsartan [Diovan] 320 mg PO DAILY Magnesium 250 mg PO DAILY Aspirin EC Tab 81 mg PO DAILY Discontinued Omeprazole [Prilosec] 20 mg PO BID - Follow Up or Referral Follow Up: Josr Cruz MD [Physician] - 1 Week (with CBC) - Forms/Instructions Instructions: Coronary Artery Disease (GEN), Heart Healthy Diet (GEN) Exam - Constitutional Vitals: Period Temp Pulse Resp BP Sys/Joya Pulse Ox Last 24 Hr 98 F-98.7 F 61-88 17-27 112-141/61-80 96-100 General appearance: normal weight, no acute distress - Head Head exam: Present: normal inspection, normocephalic - Eye Eye exam: Absent: conjunctival injection, scleral icterus Pupils: Absent: dilated - ENT ENT exam: Present: normal external ear exam - Neck Neck exam: Present: normal inspection - Respiratory Respiratory exam: Present: clear to auscultation bilaterally - Cardiovascular Cardiovascular exam: Present: regular rate and rhythm - GI/Abdominal GI/Abdominal exam: Present: normal bowel sounds - Extremities Exam Extremities exam: Present: normal inspection, normal capillary refill. Absent: edema - Back Exam Back exam: Present: normal inspection - Neurological Exam Neurological exam: Present: alert, oriented X3 - Psychiatric Psychiatric exam: Present: normal affect, normal mood - Skin Skin exam: Present: normal color, warm. Absent: cyanosis Discharge Results Procedures and tests throughout hospitalization: Pending Orders 10/15/16 22:33 Occult Blood, Stool Routine 10/17/16 04:13 Red Blood Cells Leuko Red Routine 10/19/16 04:00 BMP w/ Mg [Basic Metabolic Panel w/Mg] IN AM CBC [Comp Blood Count Auto Diff] IN AM 10/20/16 04:00 BMP w/ Mg [Basic Metabolic Panel w/Mg] IN AM CBC [Comp Blood Count Auto Diff] IN AM Labs on day of discharge: Labs from last 24 hours 10/18/16 10/18/16 10/17/16 03:02 03:02 04:13 WBC 6.2 RBC 4.80 Hgb 10.1 L Hct 32.2 L MCV 67.1 L MCH 21 L MCHC 31.4 L RDW 22.5 H Plt Count 204 MPV 10.0 Neut % (Auto) 47.3 Lymph % (Auto) 30.2 [place] % (Auto) 17.6 H Eos % (Auto) 3.9 Baso % (Auto) 0.7 Neut # (Auto) 2.9 Lymph # (Auto) 1.9 [place] # (Auto) 1.1 H Eos # (Auto) 0.2 Baso # (Auto) 0.0 Total Counted 100 Immature Gran % 0.3 Nucleated RBC % 0.0 Immature Gran # 0.02 Segmented Neutrophils 52 Lymphocytes 26 Monocytes 16 H Eosinophils 4 Basophils 2.0 H Nucleated RBCs # 0.00 Platelet Estimate Normal Immature Plt Fraction 0.0 Hypochromasia 2+ Target Cells 1+ Ovalocytes 1+ Acanthocytes (Spur) Few Sodium 135 L Potassium 3.9 Chloride 102 Carbon Dioxide 24 Anion Gap 12.9 BUN 11 Creatinine 0.80 GFR Calculation 101 BUN/Creatinine Ratio 13.00 Glucose 105 Calculated Osmolality 268.1 L Calcium 8.9 Magnesium 2.0 Transferrin Blood Type Cancelled Antibody Screen Cancelled Crossmatch See Detail Blood Bank Comment Cancelled 10/16/16 04:31 WBC RBC Hgb Hct MCV MCH MCHC RDW Plt Count MPV Neut % (Auto) Lymph % (Auto) [place] % (Auto) Eos % (Auto) Baso % (Auto) Neut # (Auto) Lymph # (Auto) [place] # (Auto) Eos # (Auto) Baso # (Auto) Total Counted Immature Gran % Nucleated RBC % Immature Gran # Segmented Neutrophils Lymphocytes Monocytes Eosinophils Basophils Nucleated RBCs # Platelet Estimate Immature Plt Fraction Hypochromasia Target Cells Ovalocytes Acanthocytes (Spur) Sodium Potassium Chloride Carbon Dioxide Anion Gap BUN Creatinine GFR Calculation BUN/Creatinine Ratio Glucose Calculated Osmolality Calcium Magnesium Transferrin 294 Blood Type Antibody Screen Crossmatch Blood Bank Comment - Imaging and Cardiology Cardiology Procedure: image reviewed by me, report reviewed by me DS: Provider Date of admission: 10/15/16 19:59 Primary care physician: . No PCP Attending physician on admission: Edgar Calderon MD Consults: 10/15/16 21:38 Consult to Cardiac Rehabilitation [CONS] Routine Reason for Cardiac Rehabilitation: Risk Factor Modification 10/16/16 08:40 Consult to Physician [CONS] Routine Comment: anemia Consulting Provider: Jeovanny Pro Discharging clinician: Edgar Calderon MD Expected date of discharge: 10/18/16
[2016-10-18] MEDS ORDERED: FERROUS SULFATE ER 140 MG TABLET PO SCH (21:00)
--- NOTE | 2016-10-20 11:50 | Operative Note ---
Date of procedure: 10/20/16 Pre-op diagnosis: Anemia with GI blood loss Procedure: Small bowel capsule endoscopy. 75-year-old white male with anemia secondary to GI blood loss with no definitive findings on upper and lower endoscopy now for small bowel camera endoscopy. Informed symptoms obtained the patient. Patient swallowed the [employer] PillCam without difficulty. Images were subsequently obtained and reviewed. A total of 6 hours and 43 minutes of images were obtained scattered AVMs were seen mostly in the jejunal region, minimal bleeding was thought to be present. No overt masses or bleeding source was identified. Postop diagnosis: 1. Small bowel angiodysplasia-unsure whether these may be within reach of the small bowel scope but will schedule small bowel endoscopy to ascertain whether or not these can be observed and fulgurated. Otherwise would expect ongoing chronic GI blood loss particularly in light of any anticoagulants. Will need to monitor his H&H and transfuse as needed. Anesthesia: none Surgeon / Physician: Jeovanny Pro Specimens: none sent Condition: stable Disposition: post procedure unit Results - Labs CBC & BMP: 10/18/16 03:02 10/18/16 03:02 Discharge Plan - Discharge Data Disposition: Disch To Home/Self Care - Discharge Medications New Metoprolol Tartrate Tab [Lopressor Tab] 50 mg PO BID #60 tablet Multivitamin (Berocca) [Berocca] 1 tablet PO DAILY #30 tablet Pantoprazole Tab [Protonix Tab] 40 mg PO BID #60 tablet Ferrous Sulfate ER Tab [Slow Fe] 140 mg PO BID #60 tablet Nitroglycerin Sl Tab [Nitrostat] 0.4 mg SL Q5M PRN #30 tablet PRN Reason: Chest Pain Continue Atorvastatin [Lipitor] 40 mg PO DAILY Tiotropium Inhalation [Spiriva Handihaler] 18 mcg INH DAILY Timolol 0.5% Oph Soln [Timoptic 0.5%] 1 drop BOTH EYES DAILY amLODIPine [Norvasc] 10 mg PO DAILY Valsartan [Diovan] 320 mg PO DAILY Magnesium 250 mg PO DAILY Aspirin EC Tab 81 mg PO DAILY Discontinued Omeprazole [Prilosec] 20 mg PO BID - Follow Up or Referral Follow Up: Josr Cruz MD [Physician] - 11/19/16 12:40 pm (with CBC 10/22 AT 7:45 FOR LAB) - Forms/Instructions Instructions: Coronary Artery Disease (GEN), Heart Healthy Diet (GEN)
== END 2016-10-18 12:10 | disposition home or self-care (01) | DRG 379 ==
LOC: N.ICU 19:59 → N.TELES 10-16 21:25
PROVIDERS: ADMIT Internal Medicine Clinical Cardiac Electrophysiology; ATTEND Internal Medicine Clinical Cardiac Electrophysiology

== ENCOUNTER 2018-03-26 09:16 | Inpatient (IN) ==
[2018-03-26] MEDS ORDERED: BISACODYL 5 MG TABLET PO PRN (12:42)
[2018-03-26] MEDS ORDERED: ONDANSETRON 4 MG/2 ML VIAL IV PRN (12:42)
[2018-03-26] MEDS ORDERED: MAGNESIUM SULF RIDER 2 GM in PREMIX 1 EACH IV PRN ×2 (12:42→14:56)
[2018-03-26] MEDS ORDERED: traMADol 50 MG TABLET PO PRN (12:42)
[2018-03-26] MEDS ORDERED: NITROGLYCERIN SL 0.4 MG TABLET SL ONE (12:42)
[2018-03-26] MEDS ORDERED: MAGNESIUM HYDROXIDE SUSP 30 ML UDCUP PO PRN (12:42)
[2018-03-26] MEDS ORDERED: POTASSIUM CHLORIDE 20 MEQ TABLET PO PRN (12:42)
[2018-03-26] MEDS ORDERED: ACETAMINOPHEN 325 MG TABLET PO PRN (12:42)
[2018-03-26] MEDS ORDERED: ALUM/MAG/SIMETH/LIDO VISC 1:1 30 ML BOTTLE PO PRN (12:42)
[2018-03-26] MEDS ORDERED: NITROGLYCERIN SL 0.4 MG TABLET SL PRN (13:44)
[2018-03-26] MEDS: ASPIRIN EC 81 MG TABLET PO SCH (14:48)
[2018-03-26] MEDS ORDERED: POTASSIUM CHLORIDE RIDER 10 MEQ in PREMIX 1 EACH IV PRN (14:56)
[2018-03-26] MEDS ORDERED: diphenhydrAMINE CAP 25 MG CAPSULE PO ONE (14:56)
[2018-03-26] MEDS ORDERED: DIAZEPAM 5 MG TABLET PO ONE (14:56)
[2018-03-26] MEDS ORDERED: HYDROmorphone 2 MG/1 ML VIAL ONE (15:36)
[2018-03-26] MEDS ORDERED: MIDAZOLAM 2 MG/2 ML VIAL ONE (15:37)
[2018-03-26] MEDS ORDERED: VERAPAMIL 5 MG/2 ML VIAL ONE (15:40)
[2018-03-26] MEDS ORDERED: ENOXAPARIN 60 MG/0.6 ML SYRINGE ONE (15:44)
[2018-03-26] MEDS ORDERED: ADENOSINE 90 MG/30 ML VIAL IV ONE (16:08)
[2018-03-26] MEDS ORDERED: ENOXAPARIN 100 MG/ML SYRINGE SUBCUT SCH (21:00)
[2018-03-26] MEDS: ZALEPLON 5 MG CAPSULE PO PRN (22:15)
[2018-03-26] MEDS: CARVEDILOL 3.125 MG TABLET PO SCH (22:15)
[2018-03-26] MEDS: PANTOPRAZOLE 40 MG TABLET PO SCH (22:15)
[2018-03-27 04:33] LABS: Basophils % 0.1 % (0.0-0.8); Hematocrit 36.8 VOL% (42.0-52.0); Hemoglobin 12.6 GM/DL (14.0-18.0); Immature Granulocytes % 1.2 %; Immature Granulocytes Absolute 0.11 #; Lymphocytes # 0.9 10*3/uL (1.4-4.0); Mean Corpuscular HGB Conc 34.2 GM/DL (32-36); Mean Corpuscular Hemoglobin 31 PG (27-34); Mean Corpuscular Volume 91.5 FL (87-102); Mean Platelet Volume 10.8 FL (9.6-12.0); Monocytes # 1.3 10*3/uL (0.11-0.8); Monocytes % 14.7 % (1.7-12.7); Neutrophils # 6.7 10*3/uL (1.4-7.4); Platelet Count 141 T/CUMM (130-400); Red Blood Count 4.02 MC/CUMM (3.8-5.5); Red Cell Distribution Width 13.9 % (9.3-17.3); White Blood Count 9.1 T/CUMM (4-12)
[2018-03-27 05:05] LABS: Blood Urea Nitrogen 15 MG/DL (7-18); Calcium 8.4 MG/DL (8.5-10.1); Glucose 145 MG/DL (74-106); Osmolality,Calculated 273.1 MOS/KG (273-304); Potassium 3.8 MMOL/L (3.5-5.1); Sodium 135 MMOL/L (136-145)
[2018-03-27 05:09] LABS: Albumin 3.1 G/DL (3.4-5.0); Bilirubin,Total 0.8 MG/DL (0.2-1.0); Calcium 8.4 MG/DL (8.5-10.1); Risk Ratio 1.73; Total Protein 6.5 G/DL (6.4-8.3); VLDL CHOLESTEROL 14.4 MG/DL
[2018-03-27] MEDS ORDERED: PREDNISONE 30 MG PO SCH (09:00)
[2018-03-27] MEDS ORDERED: LEVOFLOXACIN 750 MG PO SCH (09:00)
[2018-03-27] MEDS ORDERED: ATORVASTATIN 40 MG TABLET PO SCH (09:00)
[2018-03-27] MEDS ORDERED: ASPIRIN EC 81 MG TABLET PO SCH (09:00)
[2018-03-27] MEDS ORDERED: DEXTROSE 50% 25 GM/50 ML SYRINGE IV PRN (09:28)
[2018-03-27] MEDS ORDERED: GLUCAGON 1 MG VIAL IM PRN (09:28)
[2018-03-27] MEDS: ROSUVASTATIN 20 MG TABLET PO SCH (09:33)
[2018-03-27] MEDS: MAGNESIUM GLUCONATE 500 MG TABLET PO SCH (09:33)
[2018-03-27] MEDS: CARVEDILOL 3.125 MG TABLET PO SCH ×2 (09:34→21:34)
[2018-03-27] MEDS: amLODIPine 10 MG TABLET PO SCH (09:34)
[2018-03-27] MEDS: ASPIRIN EC 81 MG TABLET PO SCH (09:34)
[2018-03-27] MEDS: PANTOPRAZOLE 40 MG TABLET PO SCH ×2 (09:34→21:34)
[2018-03-27] MEDS: LOSARTAN 50 MG TABLET PO SCH (09:34)
[2018-03-27 09:56] LABS: ABG Base Excess 3.1 MMOL/L (-2.5-2.5); ABG HCO3 27.1 MMOL/L (20-26); ABG Oxygen Saturation 96.1 % (95-100); ABG PCO2 34.3 MM HG (35-48); ABG PH 7.488 (7.35-7.45); ABG PO2 78.7 MM HG (80-95); ABG TCO2 22.3 MMOL/L (23-27)
[2018-03-27] MEDS: TIMOLOL 0.5% OPH SOLN 5 ML BOTTLE BOTH EYES SCH (10:38)
[2018-03-27] MEDS: SODIUM CHLORIDE 0.9% 1,000 ML IV SCH (10:38)
[2018-03-27] MEDS: IPRATROPIUM 500 MCG/2.5 ML NEB RESP TX SCH ×3 (14:12→19:51)
[2018-03-27] MEDS: CHLORHEXIDINE 0.12% ORAL RINSE 60 ML BOTTLE SWISH/SPIT SCH (21:34)
[2018-03-27] MEDS: ZALEPLON 5 MG CAPSULE PO PRN (21:34)
[2018-03-28] MEDS: ZALEPLON 5 MG CAPSULE PO PRN (00:22)
[2018-03-28] MEDS ORDERED: CEFUROXIME INJ 1,500 MG in SYRINGE 1 EACH IV ONE (06:30)
[2018-03-28] MEDS: IPRATROPIUM 500 MCG/2.5 ML NEB RESP TX SCH ×4 (06:59→19:03)
[2018-03-28] MEDS: amLODIPine 10 MG TABLET PO SCH (08:39)
[2018-03-28] MEDS: MAGNESIUM GLUCONATE 500 MG TABLET PO SCH (08:39)
[2018-03-28] MEDS: ROSUVASTATIN 20 MG TABLET PO SCH (08:39)
[2018-03-28] MEDS: CARVEDILOL 3.125 MG TABLET PO SCH ×2 (08:39→20:53)
[2018-03-28] MEDS: PANTOPRAZOLE 40 MG TABLET PO SCH ×2 (08:39→20:53)
[2018-03-28] MEDS: LOSARTAN 50 MG TABLET PO SCH (08:39)
[2018-03-28] MEDS: ASPIRIN EC 81 MG TABLET PO SCH (08:39)
[2018-03-28] MEDS: CHLORHEXIDINE 0.12% ORAL RINSE 60 ML BOTTLE SWISH/SPIT SCH ×2 (08:42→20:52)
[2018-03-28] MEDS: TIMOLOL 0.5% OPH SOLN 5 ML BOTTLE BOTH EYES SCH (08:42)
[2018-03-28] MEDS: SODIUM CHLORIDE 0.9% 1,000 ML IV SCH (08:51)
[2018-03-28] MEDS: CHLORHEXIDINE 4% SOLN 118 ML BOTTLE TOP SCH ×3 (13:53→22:34)
[2018-03-29] MEDS ORDERED: VANCOMYCIN 1,000 MG VIAL ONE (04:45)
[2018-03-29] MEDS ORDERED: PAPAVERINE 60 MG/2 ML VIAL ONE (04:45)
[2018-03-29] MEDS ORDERED: CALCIUM CHLORIDE 1,000 MG/10 ML VIAL IV ONE (05:39)
[2018-03-29] MEDS ORDERED: MIDAZOLAM 10 MG/2 ML VIAL ONE (05:39)
[2018-03-29] MEDS ORDERED: PHENYLEPHRINE DRIP 20 MG/250 ML PREMIX IV ONE (05:39)
[2018-03-29] MEDS ORDERED: HEPARIN/NACL 0.9% 2 UNITS/ML 500 ML IV ONE (05:39)
[2018-03-29] MEDS ORDERED: SUFentanil 250 MCG/5 ML AMP ONE (05:40)
[2018-03-29] MEDS ORDERED: SODIUM CHLORIDE 0.9% 1,000 ML IV ONE (05:40)
[2018-03-29] MEDS ORDERED: ePHEDrine 50 MG/ML AMP ONE (05:40)
[2018-03-29] MEDS ORDERED: AMINOCAPROIC ACID 5,000 MG/20 ML VIAL IV ONE (05:40)
[2018-03-29] MEDS ORDERED: LACTATED RINGERS 1,000 ML IV ONE (05:40)
[2018-03-29] MEDS ORDERED: SODIUM CHLORIDE 0.9% 250 ML IV ONE (05:40)
[2018-03-29] MEDS ORDERED: VECURONIUM 10 MG VIAL IV ONE (05:40)
[2018-03-29] MEDS ORDERED: ETOMIDATE 40 MG/20 ML VIAL IV ONE (05:40)
[2018-03-29] MEDS ORDERED: NITROGLYCERIN DRIP 50 MG/250 ML BOTTLE IV ONE (05:40)
[2018-03-29] MEDS ORDERED: FAMOTIDINE 20 MG TABLET PO ONE (06:23)
[2018-03-29] MEDS ORDERED: DIAZEPAM 5 MG TABLET PO ONE (06:25)
[2018-03-29] MEDS ORDERED: CEFUROXIME INJ 1,500 MG in SYRINGE 1 EACH IV ONE (06:30)
[2018-03-29] MEDS ORDERED: NITROPRUSSIDE 50 MG/2 ML VIAL ONE (07:24)
[2018-03-29] MEDS ORDERED: ALBUMIN 5% 12.5 GM/250 ML VIAL IV ONE (07:25)
[2018-03-29] MEDS ORDERED: SODIUM BICARBONATE 50 MEQ/50 ML SYRINGE IV ONE ×2 (07:25→09:39)
[2018-03-29] MEDS ORDERED: LIDOCAINE 100 MG/5 ML SYRINGE ONE (07:25)
[2018-03-29] MEDS ORDERED: PHENYLEPHRINE DRIP 40 MG/250 ML PREMIX IV ONE (07:25)
[2018-03-29] MEDS ORDERED: CALCIUM CHLORIDE 1,000 MG/10 ML SYRINGE IV ONE (07:25)
[2018-03-29] MEDS ORDERED: EPINEPHrine 1 MG/10 ML SYRINGE ONE (07:25)
[2018-03-29] MEDS ORDERED: ATROPINE 1 MG/10 ML SYRINGE ONE (07:25)
[2018-03-29] MEDS ORDERED: POTASSIUM CHLORIDE RIDER 100 ML IV ONE (07:26)
[2018-03-29 07:32] LABS: ABG Base Excess 0.9 MMOL/L (-2.5-2.5); ABG HCO3 25.2 MMOL/L (20-26); ABG Oxygen Saturation 99.8 % (95-100); ABG PCO2 38.9 MM HG (35-48); ABG TCO2 21.6 MMOL/L (23-27); Glucose Heart Surgery 146 MG/DL (74-106); Hematocrit Heart Surgery 43.6 PERCENT (42-52); Hemoglobin Heart Surgery 14.2 G/DL (14.0-18.0); Ionized Calcium Arterial 1.19 MMOL/L (1.21-1.46); PCO2 Patient Temp Arterial 38.9 MMHG; Patient Temperature 37 CELCIUS; Potassium Heart/CVR 3.3 MMOL/L (3.5-5.1); Sodium Heart/CVR 134 MMOL/L (135-145)
[2018-03-29] MEDS: IPRATROPIUM 500 MCG/2.5 ML NEB RESP TX SCH ×4 (07:48→19:31)
[2018-03-29] MEDS: LOSARTAN 50 MG TABLET PO SCH (08:08)
[2018-03-29] MEDS: CHLORHEXIDINE 4% SOLN 118 ML BOTTLE TOP SCH (08:08)
[2018-03-29] MEDS: amLODIPine 10 MG TABLET PO SCH (08:08)
[2018-03-29] MEDS: ROSUVASTATIN 20 MG TABLET PO SCH (08:08)
[2018-03-29] MEDS: ASPIRIN EC 81 MG TABLET PO SCH (08:08)
[2018-03-29] MEDS: MAGNESIUM GLUCONATE 500 MG TABLET PO SCH (08:08)
[2018-03-29] MEDS: CARVEDILOL 3.125 MG TABLET PO SCH (08:08)
[2018-03-29] MEDS: PANTOPRAZOLE 40 MG TABLET PO SCH (08:09)
[2018-03-29] MEDS: TIMOLOL 0.5% OPH SOLN 5 ML BOTTLE BOTH EYES SCH ×2 (08:09→13:21)
[2018-03-29] MEDS: CHLORHEXIDINE 0.12% ORAL RINSE 60 ML BOTTLE SWISH/SPIT SCH ×2 (08:09→23:03)
[2018-03-29 08:34] LABS: Apearance,Urine CLEAR (Clear); Bilirubin,Urine Negative (Negative); Blood, Urine Negative (Negative); Glucose,Urine (UA) Negative (Negative); Ketones,Urine Negative (Negative); Mucus,Urine Occasional /LPF (Occasional); Nitrite,Urine Negative (Negative); Protein,Urine Negative; RBC,Urine <1 /HPF (0-4); Urine Color Yellow (Yellow); Urine Specific Gravity 1.012 (1.001-1.035); Urine Urobilinogen < 2.0 EU/DL (0.2-1.0); WBC,Urine <1 /HPF (0-6)
[2018-03-29 08:37] LABS: Hemoglobin Heart Surgery 10.5 G/DL (14.0-18.0); PCO2 Patient Temp Venous 35.9 MM HG; PH Patient Temp Venous 7.486; PO2 Patient Temp Venous 44.1 MM HG; Potassium Heart/CVR 3.4 MMOL/L (3.5-5.1); VBG HCO3 26.7 MEQ/L (24-28); VBG Oxygen Saturation 82.5 %; VBG PCO2 37.5 MMHG (41-51); VBG PH 7.471; VBG PO2 47.3 MMHG (17-40)
[2018-03-29 09:16] LABS: Hematocrit Heart Surgery 32.8 PERCENT (42-52); Hemoglobin Heart Surgery 10.6 G/DL (14.0-18.0); PCO2 Patient Temp Venous 37.9 MM HG; PH Patient Temp Venous 7.444; PO2 Patient Temp Venous 41.4 MM HG; Potassium Heart/CVR 5.2 MMOL/L (3.5-5.1); VBG Base Excess 1.9 MEQ/L (0-4); VBG HCO3 25.8 MEQ/L (24-28); VBG Oxygen Saturation 76.9 %; VBG PCO2 37.9 MMHG (41-51); VBG PH 7.444; VBG PO2 41.4 MMHG (17-40)
[2018-03-29 09:35] LABS: ABG Base Excess 1.3 MMOL/L (-2.5-2.5); ABG HCO3 25.2 MMOL/L (20-26); ABG Oxygen Saturation 99.1 % (95-100); ABG PCO2 37.2 MM HG (35-48); ABG PH 7.448 (7.35-7.45); ABG PO2 372.6 MM HG (80-95); ABG TCO2 26.3 MMOL/L (23-27); Glucose Heart Surgery 254 MG/DL (74-106); Hemoglobin Heart Surgery 11.6 G/DL (14.0-18.0); Ionized Calcium Arterial 1.42 MMOL/L (1.21-1.46); PCO2 Patient Temp Arterial 37.2 MMHG; PH Patient Temp Arterial 7.448; PO2 Patient Temp Arterial 372.6 MM HG; Patient Temperature 37 CELCIUS; Potassium Heart/CVR 3.8 MMOL/L (3.5-5.1); Sodium Heart/CVR 128 MMOL/L (135-145)
[2018-03-29] MEDS ORDERED: PROTAMINE SULFATE 250 MG/25 ML VIAL IV ONE (09:39)
[2018-03-29] MEDS ORDERED: FUROSEMIDE 20 MG/2 ML VIAL ONE (09:39)
[2018-03-29] MEDS ORDERED: ALBUMIN 25% 25 GM/100 ML VIAL IV ONE (09:39)
[2018-03-29] MEDS ORDERED: methylPREDNISolone SOD SUC 1,000 MG/8 ML VIAL ONE (09:39)
[2018-03-29] MEDS ORDERED: POTASSIUM CHLORIDE 20 MEQ/10 ML VIAL ONE (09:39)
[2018-03-29] MEDS ORDERED: DEXTROSE 5% KCL 20 MEQ 20 MEQ/1,000 ML BAG IV ONE (09:39)
[2018-03-29] MEDS ORDERED: MANNITOL 100 GM/500 ML BAG IV ONE (09:39)
[2018-03-29] MEDS ORDERED: ESMOLOL 100 MG/10 ML VIAL IV ONE (10:20)
[2018-03-29] MEDS ORDERED: SEVOFLURANE 1 UNIT/15 MINUTE INH ONE (10:20)
[2018-03-29] MEDS ORDERED: INSULIN REGULAR DRIP 100 ML IV SCH (10:33)
[2018-03-29] MEDS ORDERED: SODIUM CHLORIDE 0.45% 1,000 ML IV SCH ×2 (10:33)
[2018-03-29] MEDS ORDERED: NITROPRUSSIDE 100 MG in DEXTROSE 5% 250 ML IV PRN (10:33)
[2018-03-29] MEDS ORDERED: ONDANSETRON 4 MG/2 ML VIAL IV PRN (10:33)
[2018-03-29] MEDS ORDERED: ACETAMINOPHEN 650 MG SUPP RECTAL PRN (10:33)
[2018-03-29] MEDS ORDERED: LACTATED RINGERS 250 ML IV PRN (10:33)
[2018-03-29] MEDS ORDERED: MAGNESIUM SULF RIDER 2 GM in PREMIX 1 EACH IV PRN (10:33)
[2018-03-29] MEDS ORDERED: CALCIUM CHLORIDE 1,000 MG/10 ML SYRINGE IV PRN (10:33)
[2018-03-29] MEDS ORDERED: MIDAZOLAM 10 MG/2 ML VIAL IV PRN (10:33)
[2018-03-29] MEDS ORDERED: PROTAMINE SULFATE 50 MG/5 ML VIAL IV ONE ×2 (10:33→10:42)
[2018-03-29] MEDS ORDERED: VECURONIUM 10 MG VIAL IV PRN ×2 (10:33)
[2018-03-29] MEDS ORDERED: PHENYLEPHRINE DRIP 40 MG/250 ML PREMIX IV PRN (10:33)
[2018-03-29] MEDS ORDERED: MORPHINE 10 MG/1 ML VIAL IV PRN (10:33)
[2018-03-29] MEDS ORDERED: INSULIN REGULAR 100 UNIT/ML IV ONE (10:33)
[2018-03-29] MEDS ORDERED: MAGNESIUM SULF RIDER 4 GM in PREMIX 1 EACH IV PRN (10:33)
[2018-03-29] MEDS ORDERED: INSULIN REGULAR 100 UNIT/ML IV PRN (10:33)
[2018-03-29] MEDS ORDERED: DEXTROSE 50% 25 GM/50 ML SYRINGE IV PRN ×2 (10:33)
[2018-03-29] MEDS ORDERED: MIDAZOLAM 2 MG/2 ML VIAL IV PRN (10:33)
[2018-03-29 10:41] LABS: ABG Base Excess 0.3 MMOL/L (-2.5-2.5); ABG HCO3 24.7 MMOL/L (20-26); ABG Oxygen Saturation 97.6 % (95-100); ABG PCO2 38.6 MM HG (35-48); ABG PH 7.414 (7.35-7.45); ABG TCO2 21.7 MMOL/L (23-27); Glucose Heart Surgery 224 MG/DL (74-106); Hematocrit Heart Surgery 38.5 PERCENT (42-52); Hemoglobin Heart Surgery 12.5 G/DL (14.0-18.0); Potassium Heart/CVR 3.9 MMOL/L (3.5-5.1)
[2018-03-29 10:41] LABS: Basophils % 0.1 % (0.0-0.8); Eosinophils # 0.1 10*3/uL (0.0-0.87); Eosinophils % 0.9 % (0.00-10.9); Hematocrit 37.5 VOL% (42.0-52.0); Hemoglobin 12.8 GM/DL (14.0-18.0); Immature Granulocytes % 1.1 %; Immature Granulocytes Absolute 0.09 #; Lymphocytes # 0.7 10*3/uL (1.4-4.0); Mean Corpuscular HGB Conc 34.1 GM/DL (32-36); Mean Corpuscular Hemoglobin 32 PG (27-34); Mean Corpuscular Volume 93.8 FL (87-102); Mean Platelet Volume 10.6 FL (9.6-12.0); Monocytes # 0.4 10*3/uL (0.11-0.8); Monocytes % 4.5 % (1.7-12.7); Neutrophils % 85.4 % (38.7-73.9); Platelet Count 107 T/CUMM (130-400); Red Cell Distribution Width 13.7 % (9.3-17.3); White Blood Count 8.2 T/CUMM (4-12)
[2018-03-29] MEDS: POTASSIUM CHLORIDE RIDER 20 MEQ in PREMIX 1 EACH IV PRN ×3 (10:47→14:29)
[2018-03-29 10:50] LABS: PT Patient Result 10.8 SECS; Partial Thromboplastin Time 25.1 SECS (0-40)
[2018-03-29] MEDS: KETOROLAC 30 MG/1 ML VIAL IV SCH ×3 (10:53→23:03)
[2018-03-29] MEDS: SODIUM CHLORIDE 0.9% 1,000 ML IV SCH (10:54)
[2018-03-29] MEDS: LACTATED RINGERS 1,000 ML IV PRN ×3 (10:57→12:43)
[2018-03-29] MEDS: POTASSIUM CHLORIDE RIDER 10 MEQ in PREMIX 1 EACH IV PRN ×4 (11:18→18:25)
[2018-03-29] MEDS: ALBUMIN 5% 12.5 GM in PREMIX 1 EACH IV PRN ×2 (11:26→13:30)
[2018-03-29 11:34] LABS: Albumin 3.4 G/DL (3.4-5.0); Calcium 8.8 MG/DL (8.5-10.1); Osmolality,Calculated 273.4 MOS/KG (273-304); Potassium 4.4 MMOL/L (3.5-5.1); Total Protein 6.5 G/DL (6.4-8.3)
[2018-03-29 11:36] LABS: CKMB % 10.4 %
[2018-03-29 11:38] LABS: Troponin I 3.21 NG/ML (0.00-0.045)
[2018-03-29 12:21] LABS: ABG Base Excess 0.8 MMOL/L (-2.5-2.5); ABG HCO3 25.2 MMOL/L (20-26); ABG Oxygen Saturation 98.9 % (95-100); ABG PCO2 40.3 MM HG (35-48); ABG PH 7.409 (7.35-7.45); ABG TCO2 22.7 MMOL/L (23-27); Glucose Heart Surgery 176 MG/DL (74-106); Hematocrit Heart Surgery 35.6 PERCENT (42-52); Hemoglobin Heart Surgery 11.6 G/DL (14.0-18.0); Potassium Heart/CVR 4.2 MMOL/L (3.5-5.1)
[2018-03-29] MEDS ORDERED: IPRATROPIUM 500 MCG/2.5 ML NEB RESP TX SCH (13:00)
[2018-03-29 14:14] LABS: ABG Base Excess 1.7 MMOL/L (-2.5-2.5); ABG HCO3 25.9 MMOL/L (20-26); ABG Oxygen Saturation 98.9 % (95-100); ABG PCO2 41.1 MM HG (35-48); ABG PH 7.415 (7.35-7.45); ABG TCO2 23.5 MMOL/L (23-27); Glucose Heart Surgery 162 MG/DL (74-106); Hematocrit Heart Surgery 35.6 PERCENT (42-52); Hemoglobin Heart Surgery 11.6 G/DL (14.0-18.0); Potassium Heart/CVR 4.4 MMOL/L (3.5-5.1)
[2018-03-29] MEDS: MORPHINE 4 MG/1 ML VIAL IV PRN ×4 (15:12→23:01)
[2018-03-29 16:15] LABS: ABG HCO3 26.2 MMOL/L (20-26); ABG Oxygen Saturation 98.6 % (95-100); ABG PCO2 39.7 MM HG (35-48); ABG PH 7.431 (7.35-7.45); ABG TCO2 23.6 MMOL/L (23-27); Glucose Heart Surgery 186 MG/DL (74-106); Hematocrit Heart Surgery 34.6 PERCENT (42-52); Hemoglobin Heart Surgery 11.2 G/DL (14.0-18.0); Potassium Heart/CVR 4.6 MMOL/L (3.5-5.1)
[2018-03-29 17:10] LABS: ABG Base Excess 1.4 MMOL/L (-2.5-2.5); ABG HCO3 25.6 MMOL/L (20-26); ABG Oxygen Saturation 98.7 % (95-100); ABG PCO2 37.6 MM HG (35-48); ABG PH 7.437 (7.35-7.45); ABG TCO2 22.5 MMOL/L (23-27); Glucose Heart Surgery 192 MG/DL (74-106); Hematocrit Heart Surgery 35.6 PERCENT (42-52); Hemoglobin Heart Surgery 11.6 G/DL (14.0-18.0); Potassium Heart/CVR 4.8 MMOL/L (3.5-5.1)
[2018-03-29] MEDS: CEFUROXIME INJ 1,500 MG in SYRINGE 1 EACH IV SCH (18:13)
[2018-03-29 18:15] LABS: ABG Base Excess 0.8 MMOL/L (-2.5-2.5); ABG HCO3 25.2 MMOL/L (20-26); ABG Oxygen Saturation 98.5 % (95-100); ABG PCO2 36.6 MM HG (35-48); ABG PH 7.438 (7.35-7.45); ABG TCO2 21.9 MMOL/L (23-27); Glucose Heart Surgery 158 MG/DL (74-106); Hematocrit Heart Surgery 35.9 PERCENT (42-52); Hemoglobin Heart Surgery 11.7 G/DL (14.0-18.0); Potassium Heart/CVR 4.6 MMOL/L (3.5-5.1)
[2018-03-29 19:05] LABS: ABG Base Excess 0.9 MMOL/L (-2.5-2.5); ABG HCO3 25.2 MMOL/L (20-26); ABG Oxygen Saturation 98.2 % (95-100); ABG PCO2 37.4 MM HG (35-48); ABG PH 7.432 (7.35-7.45); ABG TCO2 22.3 MMOL/L (23-27); Glucose Heart Surgery 165 MG/DL (74-106); Hematocrit Heart Surgery 34.7 PERCENT (42-52); Hemoglobin Heart Surgery 11.3 G/DL (14.0-18.0); Potassium Heart/CVR 4.8 MMOL/L (3.5-5.1)
[2018-03-29 20:29] LABS: ABG Base Excess 0.8 MMOL/L (-2.5-2.5); ABG HCO3 24.7 MMOL/L (20-26); ABG Oxygen Saturation 97.7 % (95-100); ABG PCO2 37.1 MM HG (35-48); ABG PH 7.441 (7.35-7.45); ABG PO2 107.8 MM HG (80-95); ABG TCO2 25.8 MMOL/L (23-27); Glucose Heart Surgery 165 MG/DL (74-106); Hemoglobin Heart Surgery 12.1 G/DL (14.0-18.0); Potassium Heart/CVR 4.4 MMOL/L (3.5-5.1)
[2018-03-29 20:53] LABS: CKMB % 7.8 %
[2018-03-29 20:56] LABS: Troponin I 6.56 NG/ML (0.00-0.045)
[2018-03-30] MEDS ORDERED: FUROSEMIDE 40 MG/4 ML VIAL IV ONE (00:01)
[2018-03-30] MEDS: CARVEDILOL 3.125 MG TABLET PO SCH ×2 (01:08→10:24)
[2018-03-30 03:46] LABS: ABG Base Excess 1.2 MMOL/L (-2.5-2.5); ABG HCO3 25.5 MMOL/L (20-26); ABG Oxygen Saturation 96.3 % (95-100); ABG PCO2 36.8 MM HG (35-48); ABG PH 7.442 (7.35-7.45); ABG PO2 83.9 MM HG (80-95); ABG TCO2 22.3 MMOL/L (23-27); Glucose Heart Surgery 155 MG/DL (74-106); Hematocrit Heart Surgery 35.9 PERCENT (42-52); Hemoglobin Heart Surgery 11.6 G/DL (14.0-18.0)
[2018-03-30 03:49] LABS: Basophils % 0.1 % (0.0-0.8); Hematocrit 32.4 VOL% (42.0-52.0); Immature Granulocytes % 0.6 %; Immature Granulocytes Absolute 0.08 #; Lymphocytes # 0.5 10*3/uL (1.4-4.0); Lymphocytes % 4.1 % (21.2-54.2); Mean Corpuscular Hemoglobin 32 PG (27-34); Mean Corpuscular Volume 94.5 FL (87-102); Mean Platelet Volume 10.9 FL (9.6-12.0); Monocytes # 0.4 10*3/uL (0.11-0.8); Monocytes % 2.8 % (1.7-12.7); Neutrophils # 11.6 10*3/uL (1.4-7.4); Neutrophils % 92.4 % (38.7-73.9); Platelet Count 113 T/CUMM (130-400); Red Blood Count 3.43 MC/CUMM (3.8-5.5); Red Cell Distribution Width 13.7 % (9.3-17.3); White Blood Count 12.6 T/CUMM (4-12)
[2018-03-30 04:09] LABS: Band Neutrophils 3 % (0-10); Lymphocytes 4 % (20-55); Platelet Estimate Adequate; Segmented Neutrophils 91 % (50-85); Total Cells Counted 100
[2018-03-30 04:13] LABS: Troponin I 4.67 NG/ML (0.00-0.045)
[2018-03-30 04:22] LABS: Albumin 3.3 G/DL (3.4-5.0); Bilirubin,Direct 0.19 MG/DL (0.0-0.20); Bilirubin,Total 0.6 MG/DL (0.2-1.0); Calcium 8.2 MG/DL (8.5-10.1); Total Protein 6.3 G/DL (6.4-8.3)
[2018-03-30] MEDS: KETOROLAC 30 MG/1 ML VIAL IV SCH ×5 (05:26→21:31)
[2018-03-30] MEDS: CEFUROXIME INJ 1,500 MG in SYRINGE 1 EACH IV SCH (05:26)
[2018-03-30] MEDS: POTASSIUM CHLORIDE RIDER 20 MEQ in PREMIX 1 EACH IV PRN (05:26)
[2018-03-30] MEDS: IPRATROPIUM 500 MCG/2.5 ML NEB RESP TX SCH ×4 (07:17→19:07)
[2018-03-30] MEDS: CHLORHEXIDINE 0.12% ORAL RINSE 60 ML BOTTLE SWISH/SPIT SCH ×2 (08:19→21:31)
[2018-03-30] MEDS ORDERED: traMADol 50 MG TABLET PO PRN (09:52)
[2018-03-30] MEDS ORDERED: DEXTROSE 50% 25 GM/50 ML VIAL IV PRN (10:01)
[2018-03-30] MEDS ORDERED: POTASSIUM CHLORIDE 20 MEQ TABLET PO PRN (10:01)
[2018-03-30] MEDS ORDERED: SODIUM CHLOR 0.45% KCL 20 MEQ 20 MEQ/1,000 ML BAG IV SCH (10:01)
[2018-03-30] MEDS ORDERED: GLUCAGON 1 MG VIAL IM PRN ×2 (10:01)
[2018-03-30] MEDS ORDERED: ACETAMINOPHEN 325 MG TABLET PO PRN (10:01)
[2018-03-30] MEDS ORDERED: ALUMINUM/MAGNES/SIMETH MAX STR 30 ML UDCUP PO PRN (10:01)
[2018-03-30] MEDS ORDERED: MAGNESIUM SULF RIDER 4 GM in PREMIX 1 EACH IV PRN (10:01)
[2018-03-30] MEDS ORDERED: MAGNESIUM SULF RIDER 2 GM in PREMIX 1 EACH IV PRN (10:01)
[2018-03-30] MEDS ORDERED: ONDANSETRON 4 MG/2 ML VIAL IV PRN (10:01)
[2018-03-30] MEDS ORDERED: DEXTROSE 50% 25 GM/50 ML SYRINGE IV PRN (10:01)
[2018-03-30] MEDS: ASPIRIN EC 81 MG TABLET PO SCH (10:23)
[2018-03-30] MEDS: TIMOLOL 0.5% OPH SOLN 5 ML BOTTLE BOTH EYES SCH ×2 (10:24)
[2018-03-30] MEDS ORDERED: CEFUROXIME INJ 1,500 MG in SYRINGE 1 EACH IV ONE (17:30)
[2018-03-30] MEDS: ATORVASTATIN 40 MG TABLET PO SCH (21:31)
[2018-03-30] MEDS: CARVEDILOL 6.25 MG TABLET PO SCH (21:31)
[2018-03-31] MEDS: KETOROLAC 30 MG/1 ML VIAL IV SCH ×4 (04:04→21:28)
[2018-03-31 05:06] LABS: Basophils % 0.1 % (0.0-0.8); Hematocrit 28.1 VOL% (42.0-52.0); Hemoglobin 9.6 GM/DL (14.0-18.0); Immature Granulocytes % 0.5 %; Immature Granulocytes Absolute 0.08 #; Lymphocytes # 0.6 10*3/uL (1.4-4.0); Lymphocytes % 3.8 % (21.2-54.2); Mean Corpuscular HGB Conc 34.2 GM/DL (32-36); Mean Corpuscular Hemoglobin 32 PG (27-34); Mean Corpuscular Volume 93.7 FL (87-102); Mean Platelet Volume 11.4 FL (9.6-12.0); Monocytes # 1.1 10*3/uL (0.11-0.8); Monocytes % 6.4 % (1.7-12.7); Neutrophils # 14.6 10*3/uL (1.4-7.4); Neutrophils % 89.2 % (38.7-73.9); Platelet Count 117 T/CUMM (130-400); Red Cell Distribution Width 13.6 % (9.3-17.3); White Blood Count 16.4 T/CUMM (4-12)
[2018-03-31 05:31] LABS: Band Neutrophils 1 % (0-10); Hypochromasia 1+; Lymphocytes 3 % (20-55); Ovalocytes Slight; Platelet Estimate Decreased; Segmented Neutrophils 90 % (50-85); Total Cells Counted 100
[2018-03-31 05:39] LABS: Alanine Aminotransferase 28 U/L (16-61); Albumin 2.8 G/DL (3.4-5.0); Alkaline Phosphatase 37 U/L (45-117); Aspartate Amino Transferase 27 U/L (0-37); Bilirubin,Indirect 0.7 MG/DL (0.0-1.0); Blood Urea Nitrogen 32 MG/DL (7-18); Glucose 156 MG/DL (74-106); Osmolality,Calculated 275.4 MOS/KG (273-304); Potassium 4.2 MMOL/L (3.5-5.1); Sodium 133 MMOL/L (136-145)
[2018-03-31] MEDS ORDERED: FUROSEMIDE 40 MG/4 ML VIAL IV ONE (06:00)
[2018-03-31] MEDS: IPRATROPIUM 500 MCG/2.5 ML NEB RESP TX SCH ×4 (07:30→20:34)
[2018-03-31] MEDS: ASPIRIN EC 81 MG TABLET PO SCH (09:38)
[2018-03-31] MEDS: DOCUSATE SODIUM 100 MG CAPSULE PO SCH (09:38)
[2018-03-31] MEDS: amLODIPine 10 MG TABLET PO SCH (09:38)
[2018-03-31] MEDS: PANTOPRAZOLE 40 MG TABLET PO SCH (09:38)
[2018-03-31] MEDS: CARVEDILOL 6.25 MG TABLET PO SCH ×2 (09:38→21:29)
[2018-03-31] MEDS: FERROUS SULFATE 325 MG TABLET PO SCH (09:38)
[2018-03-31] MEDS: CHLORHEXIDINE 0.12% ORAL RINSE 60 ML BOTTLE SWISH/SPIT SCH ×2 (09:39→21:33)
[2018-03-31] MEDS: TIMOLOL 0.5% OPH SOLN 5 ML BOTTLE BOTH EYES SCH (09:42)
[2018-03-31] MEDS: oxyCODONE/ACETAMINOPHEN 5-325 MG TABLET PO PRN (20:17)
[2018-03-31] MEDS: ATORVASTATIN 40 MG TABLET PO SCH (21:29)
[2018-04-01] MEDS: KETOROLAC 30 MG/1 ML VIAL IV SCH ×4 (03:58→21:17)
[2018-04-01 05:06] LABS: Basophils % 0.1 % (0.0-0.8); Eosinophils % 0.4 % (0.00-10.9); Hemoglobin 9.2 GM/DL (14.0-18.0); Immature Granulocytes % 0.6 %; Immature Granulocytes Absolute 0.06 #; Lymphocytes # 1.4 10*3/uL (1.4-4.0); Mean Corpuscular HGB Conc 32.9 GM/DL (32-36); Mean Corpuscular Hemoglobin 31 PG (27-34); Mean Corpuscular Volume 95.2 FL (87-102); Mean Platelet Volume 11.6 FL (9.6-12.0); Monocytes # 1.2 10*3/uL (0.11-0.8); Monocytes % 11.7 % (1.7-12.7); Neutrophils # 7.4 10*3/uL (1.4-7.4); Neutrophils % 73.2 % (38.7-73.9); Platelet Count 108 T/CUMM (130-400); Red Blood Count 2.94 MC/CUMM (3.8-5.5); Red Cell Distribution Width 13.8 % (9.3-17.3); White Blood Count 10.2 T/CUMM (4-12)
[2018-04-01 05:41] LABS: Alanine Aminotransferase 28 U/L (16-61); Albumin 2.5 G/DL (3.4-5.0); Alkaline Phosphatase 35 U/L (45-117); Aspartate Amino Transferase 26 U/L (0-37); Bilirubin,Indirect 0.8 MG/DL (0.0-1.0); Blood Urea Nitrogen 30 MG/DL (7-18); Calcium 7.8 MG/DL (8.5-10.1); Glucose 123 MG/DL (74-106); Potassium 3.8 MMOL/L (3.5-5.1); Sodium 136 MMOL/L (136-145); Total Protein 5.7 G/DL (6.4-8.3)
[2018-04-01] MEDS: IPRATROPIUM 500 MCG/2.5 ML NEB RESP TX SCH ×4 (07:31→20:21)
[2018-04-01] MEDS ORDERED: AMIODARONE INJ 150 MG in DEXTROSE 5% 100 ML IV ONE (08:40)
[2018-04-01] MEDS ORDERED: DILTIAZEM 50 MG/10 ML VIAL IV ONE (08:41)
[2018-04-01] MEDS ORDERED: AMIODARONE INJ 450 MG in DEXTROSE 5% 241 ML IV SCH (09:00)
[2018-04-01] MEDS: CARVEDILOL 6.25 MG TABLET PO SCH (09:04)
[2018-04-01] MEDS: CHLORHEXIDINE 0.12% ORAL RINSE 60 ML BOTTLE SWISH/SPIT SCH ×2 (09:05→21:18)
[2018-04-01] MEDS: amLODIPine 10 MG TABLET PO SCH (09:05)
[2018-04-01] MEDS: TIMOLOL 0.5% OPH SOLN 5 ML BOTTLE BOTH EYES SCH (09:05)
[2018-04-01] MEDS: ASPIRIN EC 81 MG TABLET PO SCH (09:05)
[2018-04-01] MEDS: PANTOPRAZOLE 40 MG TABLET PO SCH (09:05)
[2018-04-01] MEDS: FERROUS SULFATE 325 MG TABLET PO SCH (09:05)
[2018-04-01] MEDS: DOCUSATE SODIUM 100 MG CAPSULE PO SCH (09:05)
[2018-04-01] MEDS: dilTIAZem Drip 125 MG/125 ML PREMIX IV SCH (09:22)
[2018-04-01] MEDS ORDERED: ENOXAPARIN 80 MG/0.8 ML SYRINGE SUBCUT ONE (15:52)
[2018-04-01] MEDS ORDERED: AMIODARONE 450 MG/9 ML VIAL IV ONE (17:29)
[2018-04-01] MEDS: ZALEPLON 5 MG CAPSULE PO PRN (21:18)
[2018-04-01] MEDS: CARVEDILOL 12.5 MG TABLET PO SCH (21:18)
[2018-04-01] MEDS: ATORVASTATIN 40 MG TABLET PO SCH (21:18)
[2018-04-02] MEDS: oxyCODONE/ACETAMINOPHEN 5-325 MG TABLET PO PRN ×2 (01:40→21:15)
[2018-04-02] MEDS: KETOROLAC 30 MG/1 ML VIAL IV SCH (04:47)
[2018-04-02] MEDS: IPRATROPIUM 500 MCG/2.5 ML NEB RESP TX SCH ×4 (07:31→19:51)
[2018-04-02] MEDS: ASPIRIN EC 81 MG TABLET PO SCH (10:04)
[2018-04-02] MEDS: DOCUSATE SODIUM 100 MG CAPSULE PO SCH (10:05)
[2018-04-02] MEDS: FERROUS SULFATE 325 MG TABLET PO SCH (10:05)
[2018-04-02] MEDS: AMIODARONE 200 MG TABLET PO SCH ×2 (10:05→21:11)
[2018-04-02] MEDS: CHLORHEXIDINE 0.12% ORAL RINSE 60 ML BOTTLE SWISH/SPIT SCH ×2 (10:05→21:48)
[2018-04-02] MEDS: TIMOLOL 0.5% OPH SOLN 5 ML BOTTLE BOTH EYES SCH (10:05)
[2018-04-02] MEDS: CARVEDILOL 12.5 MG TABLET PO SCH ×2 (10:05→21:12)
[2018-04-02] MEDS: PANTOPRAZOLE 40 MG TABLET PO SCH (10:05)
[2018-04-02] MEDS: amLODIPine 5 MG TABLET PO SCH (10:05)
[2018-04-02] MEDS: dilTIAZem Drip 125 MG/125 ML PREMIX IV SCH (10:06)
[2018-04-02] MEDS: ASCORBIC ACID 500 MG TABLET PO SCH ×2 (12:50→21:12)
[2018-04-02] MEDS: ATORVASTATIN 40 MG TABLET PO SCH (21:11)
[2018-04-02] MEDS: APIXABAN 5 MG TABLET PO SCH (21:45)
[2018-04-03] MEDS: ZALEPLON 5 MG CAPSULE PO PRN ×2 (02:17→22:36)
[2018-04-03 05:07] LABS: Basophils % 0.3 % (0.0-0.8); Eosinophils # 0.2 10*3/uL (0.0-0.87); Eosinophils % 2.8 % (0.00-10.9); Hematocrit 28.2 VOL% (42.0-52.0); Hemoglobin 9.4 GM/DL (14.0-18.0); Immature Granulocytes % 1.2 %; Immature Granulocytes Absolute 0.09 #; Lymphocytes # 1.4 10*3/uL (1.4-4.0); Lymphocytes % 18.7 % (21.2-54.2); Mean Corpuscular HGB Conc 33.3 GM/DL (32-36); Mean Corpuscular Hemoglobin 32 PG (27-34); Mean Corpuscular Volume 96.2 FL (87-102); Mean Platelet Volume 11.3 FL (9.6-12.0); Monocytes # 0.9 10*3/uL (0.11-0.8); Monocytes % 11.5 % (1.7-12.7); Neutrophils # 4.8 10*3/uL (1.4-7.4); Neutrophils % 65.5 % (38.7-73.9); Platelet Count 167 T/CUMM (130-400); Red Blood Count 2.93 MC/CUMM (3.8-5.5); Red Cell Distribution Width 13.6 % (9.3-17.3); White Blood Count 7.4 T/CUMM (4-12)
[2018-04-03 05:31] LABS: Alanine Aminotransferase 28 U/L (16-61); Albumin 2.8 G/DL (3.4-5.0); Alkaline Phosphatase 52 U/L (45-117); Aspartate Amino Transferase 23 U/L (0-37); Bilirubin,Indirect 0.5 MG/DL (0.0-1.0); Blood Urea Nitrogen 14 MG/DL (7-18); Calcium 8.3 MG/DL (8.5-10.1); Glucose 124 MG/DL (74-106); Osmolality,Calculated 271.1 MOS/KG (273-304); Potassium 3.9 MMOL/L (3.5-5.1); Sodium 135 MMOL/L (136-145); Total Protein 6.4 G/DL (6.4-8.3)
[2018-04-03 05:34] LABS: Troponin I 0.546 NG/ML (0.00-0.045)
[2018-04-03] MEDS: IPRATROPIUM 500 MCG/2.5 ML NEB RESP TX SCH ×4 (08:10→19:40)
[2018-04-03] MEDS: AMIODARONE 200 MG TABLET PO SCH ×2 (09:14→21:12)
[2018-04-03] MEDS: APIXABAN 5 MG TABLET PO SCH ×2 (09:15→21:12)
[2018-04-03] MEDS: DOCUSATE SODIUM 100 MG CAPSULE PO SCH (09:15)
[2018-04-03] MEDS: CARVEDILOL 12.5 MG TABLET PO SCH ×2 (09:15→21:12)
[2018-04-03] MEDS: FERROUS SULFATE 325 MG TABLET PO SCH (09:15)
[2018-04-03] MEDS: ASCORBIC ACID 500 MG TABLET PO SCH ×2 (09:15→22:32)
[2018-04-03] MEDS: PANTOPRAZOLE 40 MG TABLET PO SCH (09:15)
[2018-04-03] MEDS: amLODIPine 5 MG TABLET PO SCH (09:15)
[2018-04-03] MEDS: ASPIRIN EC 81 MG TABLET PO SCH (09:15)
[2018-04-03] MEDS: TIMOLOL 0.5% OPH SOLN 5 ML BOTTLE BOTH EYES SCH (09:16)
[2018-04-03] MEDS: CHLORHEXIDINE 0.12% ORAL RINSE 60 ML BOTTLE SWISH/SPIT SCH ×2 (09:17→21:16)
[2018-04-03] MEDS: dilTIAZem Drip 125 MG/125 ML PREMIX IV SCH (10:17)
[2018-04-03] MEDS: MAGNESIUM HYDROXIDE SUSP 30 ML UDCUP PO PRN ×2 (10:56→21:09)
[2018-04-03] MEDS: POTASSIUM CHLORIDE 20 MEQ TABLET PO SCH (14:21)
[2018-04-03] MEDS: ATORVASTATIN 40 MG TABLET PO SCH (21:12)
[2018-04-03] MEDS: oxyCODONE/ACETAMINOPHEN 5-325 MG TABLET PO PRN (22:36)
[2018-04-04] MEDS: oxyCODONE/ACETAMINOPHEN 5-325 MG TABLET PO PRN ×2 (01:17→21:20)
[2018-04-04 05:31] LABS: Basophils % 0.2 % (0.0-0.8); Eosinophils # 0.1 10*3/uL (0.0-0.87); Eosinophils % 2.5 % (0.00-10.9); Hematocrit 27.5 VOL% (42.0-52.0); Immature Granulocytes % 0.6 %; Immature Granulocytes Absolute 0.03 #; Lymphocytes # 1.3 10*3/uL (1.4-4.0); Lymphocytes % 24.4 % (21.2-54.2); Mean Corpuscular HGB Conc 32.7 GM/DL (32-36); Mean Corpuscular Hemoglobin 32 PG (27-34); Mean Corpuscular Volume 96.2 FL (87-102); Mean Platelet Volume 11.3 FL (9.6-12.0); Monocytes # 0.8 10*3/uL (0.11-0.8); Monocytes % 14.6 % (1.7-12.7); Neutrophils # 3.1 10*3/uL (1.4-7.4); Neutrophils % 57.7 % (38.7-73.9); Platelet Count 202 T/CUMM (130-400); Red Blood Count 2.86 MC/CUMM (3.8-5.5); Red Cell Distribution Width 13.8 % (9.3-17.3); White Blood Count 5.3 T/CUMM (4-12)
[2018-04-04 05:45] LABS: Alanine Aminotransferase 28 U/L (16-61); Albumin 2.6 G/DL (3.4-5.0); Alkaline Phosphatase 47 U/L (45-117); Aspartate Amino Transferase 21 U/L (0-37); Bilirubin,Indirect 0.5 MG/DL (0.0-1.0); Blood Urea Nitrogen 14 MG/DL (7-18); Calcium 8.2 MG/DL (8.5-10.1); Glucose 117 MG/DL (74-106); Osmolality,Calculated 271.1 MOS/KG (273-304); Potassium 4.2 MMOL/L (3.5-5.1); Sodium 135 MMOL/L (136-145); Total Protein 6.3 G/DL (6.4-8.3)
[2018-04-04 05:48] LABS: Troponin I 0.321 NG/ML (0.00-0.045)
[2018-04-04] MEDS: IPRATROPIUM 500 MCG/2.5 ML NEB RESP TX SCH ×4 (08:10→20:17)
[2018-04-04] MEDS: DOCUSATE SODIUM 100 MG CAPSULE PO SCH (09:37)
[2018-04-04] MEDS: ASCORBIC ACID 500 MG TABLET PO SCH ×2 (09:37→21:20)
[2018-04-04] MEDS: CARVEDILOL 12.5 MG TABLET PO SCH ×2 (09:38→21:21)
[2018-04-04] MEDS: amLODIPine 5 MG TABLET PO SCH (09:38)
[2018-04-04] MEDS: AMIODARONE 200 MG TABLET PO SCH ×2 (09:38→21:20)
[2018-04-04] MEDS: APIXABAN 5 MG TABLET PO SCH ×2 (09:38→21:20)
[2018-04-04] MEDS: PANTOPRAZOLE 40 MG TABLET PO SCH (09:38)
[2018-04-04] MEDS: POTASSIUM CHLORIDE 20 MEQ TABLET PO SCH (09:38)
[2018-04-04] MEDS: ASPIRIN EC 81 MG TABLET PO SCH (09:38)
[2018-04-04] MEDS: FERROUS SULFATE 325 MG TABLET PO SCH (09:38)
[2018-04-04] MEDS: CHLORHEXIDINE 0.12% ORAL RINSE 60 ML BOTTLE SWISH/SPIT SCH ×2 (09:39→21:21)
[2018-04-04] MEDS: TIMOLOL 0.5% OPH SOLN 5 ML BOTTLE BOTH EYES SCH (09:40)
[2018-04-04] MEDS: ZALEPLON 5 MG CAPSULE PO PRN (21:20)
[2018-04-04] MEDS: ATORVASTATIN 40 MG TABLET PO SCH (21:20)
[2018-04-05] MEDS: IPRATROPIUM 500 MCG/2.5 ML NEB RESP TX SCH ×2 (07:27→10:44)
[2018-04-05 08:24] VITALS: BP 147/73
[2018-04-05] MEDS: PANTOPRAZOLE 40 MG TABLET PO SCH (09:29)
[2018-04-05] MEDS: amLODIPine 5 MG TABLET PO SCH (09:29)
[2018-04-05] MEDS: AMIODARONE 200 MG TABLET PO SCH (09:29)
[2018-04-05] MEDS: FERROUS SULFATE 325 MG TABLET PO SCH (09:30)
[2018-04-05] MEDS: ASPIRIN EC 81 MG TABLET PO SCH (09:30)
[2018-04-05] MEDS: APIXABAN 5 MG TABLET PO SCH (09:30)
[2018-04-05] MEDS: ASCORBIC ACID 500 MG TABLET PO SCH (09:30)
[2018-04-05] MEDS: POTASSIUM CHLORIDE 20 MEQ TABLET PO SCH (09:30)
[2018-04-05] MEDS: CARVEDILOL 12.5 MG TABLET PO SCH (09:30)
[2018-04-05] MEDS: DOCUSATE SODIUM 100 MG CAPSULE PO SCH (09:30)
[2018-04-05] MEDS: TIMOLOL 0.5% OPH SOLN 5 ML BOTTLE BOTH EYES SCH (09:32)
[2018-04-05] MEDS: CHLORHEXIDINE 0.12% ORAL RINSE 60 ML BOTTLE SWISH/SPIT SCH (09:32)
== END 2018-04-05 12:55 | disposition home health service (06) | DRG 234 ==
LOC: N.TELES → N.CVR 03-29 07:41 → N.TELES 03-30 10:35
PROVIDERS: ADMIT Internal Medicine Cardiovascular Disease; ATTEND Internal Medicine Cardiovascular Disease
PROC: CLCCHCL (ICD-10-PCS; 2018-03-26 16:15)

== ENCOUNTER 2018-04-07 23:49 | Inpatient (IN) ==
[2018-04-08] MEDS ORDERED: SODIUM CHLORIDE 0.9% 1,000 ML IV SCH (02:45)
[2018-04-08] MEDS ORDERED: ONDANSETRON 4 MG/2 ML VIAL IV PRN (02:45)
[2018-04-08] MEDS ORDERED: MAGNESIUM SULF RIDER 2 GM in PREMIX 1 EACH IV PRN (02:45)
[2018-04-08] MEDS ORDERED: MAGNESIUM SULF RIDER 4 GM in PREMIX 1 EACH IV PRN (02:45)
[2018-04-08 05:18] LABS: Basophils % 0.5 % (0.0-0.8); Eosinophils # 0.2 10*3/uL (0.0-0.87); Eosinophils % 2.7 % (0.00-10.9); Hematocrit 25.2 VOL% (42.0-52.0); Hemoglobin 8.3 GM/DL (14.0-18.0); Immature Granulocytes % 0.5 %; Immature Granulocytes Absolute 0.03 #; Lymphocytes % 15.6 % (21.2-54.2); Mean Corpuscular HGB Conc 32.9 GM/DL (32-36); Mean Corpuscular Hemoglobin 31 PG (27-34); Mean Corpuscular Volume 94.4 FL (87-102); Mean Platelet Volume 10.3 FL (9.6-12.0); Neutrophils # 4.2 10*3/uL (1.4-7.4); Neutrophils % 65.7 % (38.7-73.9); Platelet Count 239 T/CUMM (130-400); Red Blood Count 2.67 MC/CUMM (3.8-5.5); Red Cell Distribution Width 13.5 % (9.3-17.3); White Blood Count 6.4 T/CUMM (4-12)
[2018-04-08 05:35] LABS: Albumin 2.6 G/DL (3.4-5.0); Bilirubin,Total 0.6 MG/DL (0.2-1.0); Calcium 8.2 MG/DL (8.5-10.1); Osmolality,Calculated 269.2 MOS/KG (273-304); Potassium 3.9 MMOL/L (3.5-5.1); Risk Ratio 2.97; Total Protein 6.1 G/DL (6.4-8.3); VLDL CHOLESTEROL 10.2 MG/DL
[2018-04-08] MEDS ORDERED: NITROGLYCERIN SL 0.4 MG TABLET SL PRN (09:50)
[2018-04-08] MEDS: ASCORBIC ACID 500 MG TABLET PO SCH ×2 (10:25→21:49)
[2018-04-08] MEDS: AMIODARONE 200 MG TABLET PO SCH ×2 (10:25→21:49)
[2018-04-08] MEDS: PANTOPRAZOLE 40 MG TABLET PO SCH ×2 (10:25→21:49)
[2018-04-08] MEDS: TIMOLOL 0.5% OPH SOLN 5 ML BOTTLE BOTH EYES SCH (10:25)
[2018-04-08] MEDS: APIXABAN 5 MG TABLET PO SCH ×2 (10:25→21:49)
[2018-04-08] MEDS: MAGNESIUM GLUCONATE 500 MG TABLET PO SCH (11:32)
[2018-04-08] MEDS ORDERED: FUROSEMIDE 40 MG/4 ML VIAL IV ONE (15:00)
[2018-04-08] MEDS: ALBUTEROL/IPRATROPIUM 3 ML NEB RESP TX SCH ×2 (19:14→23:56)
[2018-04-08] MEDS: CARVEDILOL 3.125 MG TABLET PO SCH (21:49)
[2018-04-08] MEDS: MORPHINE 4 MG/1 ML VIAL IV PRN (22:44)
[2018-04-09] MEDS: ALBUTEROL/IPRATROPIUM 3 ML NEB RESP TX SCH ×5 (03:45→20:20)
[2018-04-09 05:31] LABS: Basophils % 0.6 % (0.0-0.8); Eosinophils # 0.1 10*3/uL (0.0-0.87); Eosinophils % 1.6 % (0.00-10.9); Hematocrit 27.1 VOL% (42.0-52.0); Immature Granulocytes % 0.5 %; Immature Granulocytes Absolute 0.03 #; Lymphocytes # 1.2 10*3/uL (1.4-4.0); Lymphocytes % 19.3 % (21.2-54.2); Mean Corpuscular HGB Conc 33.2 GM/DL (32-36); Mean Corpuscular Hemoglobin 32 PG (27-34); Mean Corpuscular Volume 95.4 FL (87-102); Mean Platelet Volume 10.8 FL (9.6-12.0); Monocytes # 1.1 10*3/uL (0.11-0.8); Neutrophils # 3.8 10*3/uL (1.4-7.4); Platelet Count 263 T/CUMM (130-400); Red Blood Count 2.84 MC/CUMM (3.8-5.5); Red Cell Distribution Width 13.5 % (9.3-17.3); White Blood Count 6.2 T/CUMM (4-12)
[2018-04-09 05:46] LABS: Calcium 8.5 MG/DL (8.5-10.1); Osmolality,Calculated 265.4 MOS/KG (273-304); Potassium 3.9 MMOL/L (3.5-5.1)
[2018-04-09 05:59] LABS: Eosinophils 4 % (0-10); Hypochromasia 1+; Lymphocytes 18 % (20-55); Platelet Estimate Adequate; Segmented Neutrophils 66 % (50-85); Total Cells Counted 100
[2018-04-09] MEDS: PANTOPRAZOLE 40 MG TABLET PO SCH ×2 (09:17→21:18)
[2018-04-09] MEDS: ASCORBIC ACID 500 MG TABLET PO SCH ×2 (09:17→21:17)
[2018-04-09] MEDS: ATORVASTATIN 40 MG TABLET PO SCH (09:17)
[2018-04-09] MEDS: MAGNESIUM GLUCONATE 500 MG TABLET PO SCH (09:17)
[2018-04-09] MEDS: LOSARTAN 50 MG TABLET PO SCH (09:17)
[2018-04-09] MEDS: ASPIRIN EC 81 MG TABLET PO SCH (09:17)
[2018-04-09] MEDS: AMIODARONE 200 MG TABLET PO SCH ×2 (09:17→21:18)
[2018-04-09] MEDS: CARVEDILOL 3.125 MG TABLET PO SCH ×2 (09:17→21:18)
[2018-04-09] MEDS: APIXABAN 5 MG TABLET PO SCH ×2 (09:17→21:18)
[2018-04-09] MEDS: FERROUS SULFATE 325 MG TABLET PO SCH (09:20)
[2018-04-09] MEDS: TIMOLOL 0.5% OPH SOLN 5 ML BOTTLE BOTH EYES SCH (09:20)
[2018-04-09] MEDS: DOCUSATE SODIUM 100 MG CAPSULE PO SCH (14:51)
[2018-04-09] MEDS ORDERED: SIMETHICONE CHEW 125 MG TABLET PO PRN (16:56)
[2018-04-09] MEDS: MORPHINE 4 MG/1 ML VIAL IV PRN (23:36)
[2018-04-10] MEDS: ALBUTEROL/IPRATROPIUM 3 ML NEB RESP TX SCH ×7 (00:58→23:49)
[2018-04-10] MEDS: guaiFENesin/DM ER 600-30 MG TABLET PO SCH ×2 (10:14→21:04)
[2018-04-10] MEDS: MAGNESIUM GLUCONATE 500 MG TABLET PO SCH (10:14)
[2018-04-10] MEDS: ASCORBIC ACID 500 MG TABLET PO SCH ×2 (10:14→21:04)
[2018-04-10] MEDS: ATORVASTATIN 40 MG TABLET PO SCH (10:15)
[2018-04-10] MEDS: APIXABAN 5 MG TABLET PO SCH ×2 (10:15→21:04)
[2018-04-10] MEDS: CARVEDILOL 3.125 MG TABLET PO SCH ×2 (10:15→21:04)
[2018-04-10] MEDS: LOSARTAN 50 MG TABLET PO SCH (10:15)
[2018-04-10] MEDS: ASPIRIN EC 81 MG TABLET PO SCH (10:16)
[2018-04-10] MEDS: FERROUS SULFATE 325 MG TABLET PO SCH (10:16)
[2018-04-10] MEDS: AMIODARONE 200 MG TABLET PO SCH ×2 (10:16→21:04)
[2018-04-10] MEDS: DOCUSATE SODIUM 100 MG CAPSULE PO SCH (10:16)
[2018-04-10] MEDS: PANTOPRAZOLE 40 MG TABLET PO SCH ×2 (10:16→21:04)
[2018-04-10] MEDS: TIMOLOL 0.5% OPH SOLN 5 ML BOTTLE BOTH EYES SCH (10:22)
[2018-04-10] MEDS: oxyCODONE/ACETAMINOPHEN 5-325 MG TABLET PO PRN ×2 (12:01→23:31)
[2018-04-11] MEDS: ALBUTEROL/IPRATROPIUM 3 ML NEB RESP TX SCH ×5 (02:55→20:04)
[2018-04-11] MEDS: MAGNESIUM GLUCONATE 500 MG TABLET PO SCH (09:31)
[2018-04-11] MEDS: PANTOPRAZOLE 40 MG TABLET PO SCH ×2 (09:32→21:01)
[2018-04-11] MEDS: ASPIRIN EC 81 MG TABLET PO SCH (09:32)
[2018-04-11] MEDS: ATORVASTATIN 40 MG TABLET PO SCH (09:32)
[2018-04-11] MEDS: APIXABAN 5 MG TABLET PO SCH ×2 (09:32→21:02)
[2018-04-11] MEDS: AMIODARONE 200 MG TABLET PO SCH ×2 (09:32→21:02)
[2018-04-11] MEDS: CARVEDILOL 3.125 MG TABLET PO SCH ×2 (09:32→21:02)
[2018-04-11] MEDS: DOCUSATE SODIUM 100 MG CAPSULE PO SCH (09:32)
[2018-04-11] MEDS: LOSARTAN 50 MG TABLET PO SCH (09:32)
[2018-04-11] MEDS: ASCORBIC ACID 500 MG TABLET PO SCH ×2 (09:32→21:25)
[2018-04-11] MEDS: guaiFENesin/DM ER 600-30 MG TABLET PO SCH ×2 (09:32→21:01)
[2018-04-11] MEDS: FERROUS SULFATE 325 MG TABLET PO SCH (09:33)
[2018-04-11] MEDS: TIMOLOL 0.5% OPH SOLN 5 ML BOTTLE BOTH EYES SCH (09:33)
[2018-04-11] MEDS ORDERED: MAGNESIUM HYDROXIDE SUSP 30 ML UDCUP PO PRN (14:08)
[2018-04-12] MEDS: oxyCODONE/ACETAMINOPHEN 5-325 MG TABLET PO PRN (00:20)
[2018-04-12] MEDS: ALBUTEROL/IPRATROPIUM 3 ML NEB RESP TX SCH ×4 (00:37→10:45)
[2018-04-12 08:21] VITALS: BP 122/66
[2018-04-12] MEDS: APIXABAN 5 MG TABLET PO SCH (10:03)
[2018-04-12] MEDS: MAGNESIUM GLUCONATE 500 MG TABLET PO SCH (10:03)
[2018-04-12] MEDS: CARVEDILOL 3.125 MG TABLET PO SCH (10:03)
[2018-04-12] MEDS: FERROUS SULFATE 325 MG TABLET PO SCH (10:04)
[2018-04-12] MEDS: LOSARTAN 50 MG TABLET PO SCH (10:04)
[2018-04-12] MEDS: ASPIRIN EC 81 MG TABLET PO SCH (10:04)
[2018-04-12] MEDS: guaiFENesin/DM ER 600-30 MG TABLET PO SCH (10:04)
[2018-04-12] MEDS: PANTOPRAZOLE 40 MG TABLET PO SCH (10:04)
[2018-04-12] MEDS: ASCORBIC ACID 500 MG TABLET PO SCH (10:04)
[2018-04-12] MEDS: DOCUSATE SODIUM 100 MG CAPSULE PO SCH (10:04)
[2018-04-12] MEDS: AMIODARONE 200 MG TABLET PO SCH (10:05)
[2018-04-12] MEDS: TIMOLOL 0.5% OPH SOLN 5 ML BOTTLE BOTH EYES SCH (10:05)
[2018-04-12] MEDS: ATORVASTATIN 40 MG TABLET PO SCH (10:05)
== END 2018-04-12 11:03 | disposition home or self-care (01) | DRG 206 ==
LOC: EDBD → EDUNIT# → N.ED 23:49 → N.EDINP 23:59 → INTOOBSV 23:59 → N.TELES 04-08 00:40

== ENCOUNTER 2018-06-25 16:05 | Inpatient (IN) ==
[2018-06-25] MEDS ORDERED: ONDANSETRON 4 MG/2 ML VIAL IV STA (16:17)
[2018-06-25] MEDS ORDERED: hydrALAZINE 20 MG/1 ML VIAL IV STA (16:17)
[2018-06-25] MEDS ORDERED: methylPREDNISolone SOD SUC 125 MG/2 ML VIAL IV STA (16:17)
[2018-06-25] MEDS ORDERED: FUROSEMIDE 100 MG/10 ML VIAL IV STA (16:17)
[2018-06-25] MEDS ORDERED: TERBUTALINE 1 MG/1 ML VIAL SUBCUT ONE (16:30)
[2018-06-25] MEDS: TERBUTALINE 1 MG/1 ML VIAL SUBCUT SCH ×2 (16:30→17:01)
[2018-06-25] MEDS ORDERED: ALBUTEROL 2.5 MG/3 ML NEB RESP TX SCH (16:30)
[2018-06-25 16:35] LABS: Basophils # 0.1 10*3/uL (0.0-0.2); Basophils % 1.3 % (0.0-0.8); Eosinophils # 0.6 10*3/uL (0.0-0.87); Eosinophils % 9.8 % (0.00-10.9); Hematocrit 49.6 VOL% (42.0-52.0); Hemoglobin 15.8 GM/DL (14.0-18.0); Immature Granulocytes % 0.2 %; Immature Granulocytes Absolute 0.01 #; Lymphocytes # 1.6 10*3/uL (1.4-4.0); Lymphocytes % 25.4 % (21.2-54.2); Mean Corpuscular HGB Conc 31.9 GM/DL (32-36); Mean Corpuscular Hemoglobin 30 PG (27-34); Mean Corpuscular Volume 92.9 FL (87-102); Mean Platelet Volume 11.5 FL (9.6-12.0); Monocytes # 0.8 10*3/uL (0.11-0.8); Monocytes % 13.3 % (1.7-12.7); Neutrophils # 3.1 10*3/uL (1.4-7.4); Platelet Count 147 T/CUMM (130-400); Red Blood Count 5.34 MC/CUMM (3.8-5.5); White Blood Count 6.1 T/CUMM (4-12)
[2018-06-25 16:44] LABS: INR 0.9; PT Patient Result 10.2 SECS; Partial Thromboplastin Time 28.5 SECS (0-40)
[2018-06-25] MEDS ORDERED: AZITHROMYCIN INJ 500 MG in SODIUM CHLORIDE 0.9% 250 ML IV STA (16:45)
[2018-06-25] MEDS ORDERED: NITROGLYCERIN 2% OINT 1 INCH/GM PACK TOP STA (16:45)
[2018-06-25 17:03] LABS: Apearance,Urine CLEAR (Clear); Bilirubin,Urine Negative (Negative); Blood, Urine Negative (Negative); Glucose,Urine (UA) Negative (Negative); Ketones,Urine 5 mg/dL (Negative); Mucus,Urine Occasional /LPF (Occasional); Nitrite,Urine Negative (Negative); Protein,Urine 30 MG/DL; RBC,Urine 1 /HPF (0-4); Urine Color Straw (Yellow); Urine Specific Gravity 1.006 (1.001-1.035); Urine Urobilinogen < 2.0 EU/DL (0.2-1.0); WBC,Urine <1 /HPF (0-6)
[2018-06-25 17:13] LABS: Barbiturates Screen,Urine Negative (Negative); Benzodiazepines Screen,Urine Negative (Negative); Cannabinoid Screen,Urine Negative (Negative); Opiate Screen,Urine Negative (Negative); Phencyclidine Screen,Urine Negative (Negative)
[2018-06-25 18:26] LABS: Alanine Aminotransferase 32 U/L (16-61); Albumin 3.8 G/DL (3.4-5.0); Alkaline Phosphatase 70 U/L (45-117); Aspartate Amino Transferase 45 U/L (0-37); Blood Urea Nitrogen 12 MG/DL (7-18); Calcium 8.7 MG/DL (8.5-10.1); Glucose 168 MG/DL (74-106); Osmolality,Calculated 276.8 MOS/KG (273-304); Potassium 3.5 MMOL/L (3.5-5.1); Sodium 137 MMOL/L (136-145); Total Protein 8.3 G/DL (6.4-8.3); Troponin I 0.198 NG/ML (0.00-0.045)
[2018-06-25] MEDS ORDERED: cefTRIAXone 250 MG VIAL IV STA (19:35)
[2018-06-25] MEDS ORDERED: cefTRIAXone 1,000 MG VIAL ONE (19:48)
[2018-06-25] MEDS ORDERED: MORPHINE 4 MG/1 ML VIAL IV PRN (20:04)
[2018-06-25] MEDS ORDERED: BISACODYL 5 MG TABLET PO PRN (20:04)
[2018-06-25] MEDS ORDERED: NICOTINE 21 MG/24 HR PATCH TRANSDERM PRN (20:04)
[2018-06-25] MEDS ORDERED: MAGNESIUM SULF RIDER 4 GM in PREMIX 1 EACH IV PRN (20:04)
[2018-06-25] MEDS ORDERED: ONDANSETRON 4 MG/2 ML VIAL IV PRN (20:04)
[2018-06-25] MEDS ORDERED: POTASSIUM CHLORIDE 20 MEQ TABLET PO PRN (20:04)
[2018-06-25] MEDS ORDERED: MAGNESIUM SULF RIDER 2 GM in PREMIX 1 EACH IV PRN (20:04)
[2018-06-25] MEDS ORDERED: guaiFENesin/DM ER 600-30 MG TABLET PO PRN (20:04)
[2018-06-25] MEDS ORDERED: diphenhydrAMINE CAP 25 MG CAPSULE PO PRN (20:04)
[2018-06-25] MEDS ORDERED: ACETAMINOPHEN 325 MG TABLET PO PRN (20:04)
[2018-06-25] MEDS ORDERED: FLUTICASONE 50 MCG BOTH NARES PRN (21:29)
[2018-06-25] MEDS ORDERED: NON-FORMULARY MEDICATION (Albuterol Sulfate [Proair Hfa] 2 PUFF) INH PRN (21:29)
[2018-06-25] MEDS ORDERED: APIXABAN 5 MG TABLET PO SCH (21:29)
[2018-06-25] MEDS ORDERED: NITROGLYCERIN SL 0.4 MG TABLET SL PRN (21:29)
[2018-06-25] MEDS ORDERED: CARVEDILOL 3.125 MG TABLET PO SCH (21:30)
[2018-06-25] MEDS: CARVEDILOL 6.25 MG TABLET PO SCH (22:37)
[2018-06-25] MEDS: APIXABAN 5 MG TABLET PO SCH (22:37)
[2018-06-25] MEDS: AMIODARONE 200 MG TABLET PO SCH (22:37)
[2018-06-25] MEDS: ATORVASTATIN 40 MG TABLET PO SCH (22:38)
[2018-06-25] MEDS: ASCORBIC ACID 500 MG TABLET PO SCH (22:38)
[2018-06-25] MEDS ORDERED: ZOLPIDEM 5 MG TABLET PO PRN (23:40)
[2018-06-26] MEDS: ALBUTEROL/IPRATROPIUM 3 ML NEB RESP TX SCH ×4 (00:35→19:26)
[2018-06-26 02:22] LABS: Basophils % 0.4 % (0.0-0.8); Eosinophils % 0.4 % (0.00-10.9); Hematocrit 42.6 VOL% (42.0-52.0); Immature Granulocytes % 0.4 %; Immature Granulocytes Absolute 0.01 #; Lymphocytes # 0.5 10*3/uL (1.4-4.0); Mean Corpuscular HGB Conc 32.9 GM/DL (32-36); Mean Corpuscular Hemoglobin 30 PG (27-34); Mean Corpuscular Volume 90.6 FL (87-102); Mean Platelet Volume 11.2 FL (9.6-12.0); Monocytes # 0.1 10*3/uL (0.11-0.8); Monocytes % 2.1 % (1.7-12.7); Neutrophils # 1.8 10*3/uL (1.4-7.4); Neutrophils % 76.7 % (38.7-73.9); Platelet Count 136 T/CUMM (130-400); Red Cell Distribution Width 14.9 % (9.3-17.3); White Blood Count 2.4 T/CUMM (4-12)
[2018-06-26 02:59] LABS: Albumin 3.5 G/DL (3.4-5.0); Bilirubin,Total 0.6 MG/DL (0.2-1.0); Calcium 8.9 MG/DL (8.5-10.1); Osmolality,Calculated 273.1 MOS/KG (273-304); Potassium 3.9 MMOL/L (3.5-5.1)
[2018-06-26] MEDS: methylPREDNISolone SOD SUC 40 MG/1 ML VIAL IV SCH ×2 (04:15→16:41)
[2018-06-26] MEDS: ASCORBIC ACID 500 MG TABLET PO SCH ×2 (08:39→21:12)
[2018-06-26] MEDS: APIXABAN 5 MG TABLET PO SCH ×2 (08:40→21:13)
[2018-06-26] MEDS: PANTOPRAZOLE 40 MG TABLET PO SCH (08:40)
[2018-06-26] MEDS: CARVEDILOL 6.25 MG TABLET PO SCH ×2 (08:40→21:12)
[2018-06-26] MEDS: AMIODARONE 200 MG TABLET PO SCH (08:40)
[2018-06-26] MEDS: ASPIRIN EC 81 MG TABLET PO SCH (08:40)
[2018-06-26] MEDS ORDERED: ASPIRIN EC 81 MG TABLET PO SCH (09:00)
[2018-06-26] MEDS ORDERED: TIMOLOL 0.5% BOTH EYES SCH (09:00)
[2018-06-26] MEDS ORDERED: NON-FORMULARY MEDICATION (Magnesium [Magnesium] 250 MG) PO SCH (09:00)
[2018-06-26] MEDS ORDERED: ATORVASTATIN 40 MG TABLET PO SCH (09:00)
[2018-06-26] MEDS: FUROSEMIDE 40 MG/4 ML VIAL IV SCH (16:42)
[2018-06-26] MEDS ORDERED: AZITHROMYCIN INJ 500 MG in SODIUM CHLORIDE 0.9% 250 ML IV SCH (20:30)
[2018-06-26] MEDS: ATORVASTATIN 40 MG TABLET PO SCH (21:12)
[2018-06-26] MEDS: cefTRIAXone 1,000 MG in SYRINGE 1 EACH IV SCH (21:13)
[2018-06-27] MEDS: ALBUTEROL/IPRATROPIUM 3 ML NEB RESP TX SCH ×3 (02:08→12:38)
[2018-06-27] MEDS: methylPREDNISolone SOD SUC 40 MG/1 ML VIAL IV SCH (04:35)
[2018-06-27 04:58] LABS: Hematocrit 38.5 VOL% (42.0-52.0); Hemoglobin 12.7 GM/DL (14.0-18.0); Immature Granulocytes % 0.6 %; Immature Granulocytes Absolute 0.06 #; Lymphocytes # 0.9 10*3/uL (1.4-4.0); Mean Corpuscular Hemoglobin 30 PG (27-34); Mean Corpuscular Volume 90.4 FL (87-102); Mean Platelet Volume 12.2 FL (9.6-12.0); Monocytes # 0.7 10*3/uL (0.11-0.8); Monocytes % 6.9 % (1.7-12.7); Neutrophils % 83.5 % (38.7-73.9); Platelet Count 149 T/CUMM (130-400); Red Blood Count 4.26 MC/CUMM (3.8-5.5); Red Cell Distribution Width 15.1 % (9.3-17.3); White Blood Count 9.6 T/CUMM (4-12)
[2018-06-27 05:15] LABS: Calcium 8.3 MG/DL (8.5-10.1); Osmolality,Calculated 280.8 MOS/KG (273-304); Potassium 3.7 MMOL/L (3.5-5.1)
[2018-06-27] MEDS: CARVEDILOL 6.25 MG TABLET PO SCH (08:58)
[2018-06-27] MEDS: APIXABAN 5 MG TABLET PO SCH (08:59)
[2018-06-27] MEDS: ASCORBIC ACID 500 MG TABLET PO SCH (09:01)
[2018-06-27] MEDS: FUROSEMIDE 40 MG/4 ML VIAL IV SCH (09:01)
[2018-06-27] MEDS: PANTOPRAZOLE 40 MG TABLET PO SCH (09:01)
[2018-06-27] MEDS: ASPIRIN EC 81 MG TABLET PO SCH (09:01)
[2018-06-27] MEDS: cefTRIAXone 1,000 MG in SYRINGE 1 EACH IV SCH (09:02)
[2018-06-27 11:40] VITALS: BP 123/61
== END 2018-06-27 13:01 | disposition home or self-care (01) | DRG 291 ==
LOC: N.ED 16:05 → N.EDINP 20:04 → N.TELES 20:26
PROVIDERS: ADMIT Internal Medicine; ATTEND Internal Medicine

== ENCOUNTER 2021-08-12 05:57 | Day surgery (SDC) ==
[2021-08-12] MEDS ORDERED: ASPIRIN 325 MG TABLET PO ONE (06:09)
[2021-08-12] MEDS ORDERED: POTASSIUM CHLORIDE RIDER 10 MEQ/100 ML PREMIX IV PRN (06:09)
[2021-08-12] MEDS ORDERED: DIAZEPAM 5 MG TABLET PO ONE (06:09)
[2021-08-12] MEDS ORDERED: diphenhydrAMINE CAP 50 MG CAPSULE PO ONE (06:09)
[2021-08-12] MEDS ORDERED: MAGNESIUM SULF RIDER 2 GM/50 ML PREMIX IV PRN (06:09)
[2021-08-12 06:28] VITALS: BP 171/68
[2021-08-12] MEDS ORDERED: DIAZEPAM 5 MG TABLET ONE ×2 (06:45)
[2021-08-12] MEDS ORDERED: ASPIRIN 325 MG TABLET ONE (06:45)
[2021-08-12] MEDS ORDERED: diphenhydrAMINE CAP 50 MG CAPSULE ONE (06:45)
[2021-08-12] MEDS: SODIUM CHLORIDE 0.9% 1,000 ML IV SCH ×2 (06:58→17:32)
[2021-08-12 07:01] LABS: Basophils # 0.1 10*3/uL (0.0-0.2); Basophils % 1.3 % (0.0-0.8); Eosinophils # 0.3 10*3/uL (0.0-0.87); Eosinophils % 3.9 % (0.00-10.9); Hematocrit 34.9 VOL% (42.0-52.0); Hemoglobin 12.1 GM/DL (14.0-18.0); Immature Granulocytes % 0.4 %; Immature Granulocytes Absolute 0.03 #; Lymphocytes % 15.1 % (21.2-54.2); Mean Corpuscular HGB Conc 34.7 GM/DL (32-36); Mean Corpuscular Volume 93.1 FL (87-102); Mean Platelet Volume 10.6 FL (9.6-12.0); Monocytes # 0.8 10*3/uL (0.11-0.8); Monocytes % 12.6 % (1.7-12.7); Neutrophils % 66.7 % (38.7-73.9); Platelet Count 143 T/CUMM (130-400); Red Blood Count 3.75 MC/CUMM (3.8-5.5); Red Cell Distribution Width 12.4 % (9.3-17.3); White Blood Count 6.7 T/CUMM (4-12)
[2021-08-12 08:25] LABS: Albumin 3.8 G/DL (3.4-5.0); Bilirubin,Total 0.6 MG/DL (0.20-1.00); Calcium 9.5 MG/DL (8.5-10.1); Osmolality,Calculated 258.1 MOS/KG (273-304); Potassium 4.4 MMOL/L (3.5-5.1); Total Protein 7.4 G/DL (6.4-8.2)
[2021-08-12] MEDS ORDERED: NITROGLYCERIN DRIP 50 MG/250 ML BOTTLE IV ONE (09:38)
[2021-08-12] MEDS ORDERED: HYDROmorphone 1 MG/1 ML SYRINGE ONE ×3 (09:39→12:00)
[2021-08-12] MEDS ORDERED: MIDAZOLAM 2 MG/2 ML VIAL ONE (09:39)
[2021-08-12] MEDS ORDERED: VERAPAMIL 5 MG/2 ML VIAL ONE ×4 (09:40→11:01)
[2021-08-12] MEDS ORDERED: HEPARIN 5,000 UNIT/1 ML VIAL ONE ×2 (09:57→11:06)
[2021-08-12] MEDS ORDERED: ONDANSETRON 4 MG/2 ML VIAL ONE (10:22)
[2021-08-12] MEDS ORDERED: CLOPIDOGREL 300 MG TABLET PO ONE (16:31)
[2021-08-12] MEDS ORDERED: CLOPIDOGREL 75 MG TABLET PO ONE (17:30)
== END 2021-08-12 19:06 | disposition home or self-care (01) ==
LOC: N.TELEN 05:57 → N.CL 05:57 → N.TELEN 16:25 → N.CL 19:06
PROVIDERS: ATTEND Internal Medicine Cardiovascular Disease

== ENCOUNTER 2021-12-15 09:47 | Observation (INO) ==
[2021-12-15] MEDS ORDERED: methylPREDNISolone SOD SUC 125 MG/2 ML VIAL IV STA (10:07)
[2021-12-15] MEDS ORDERED: ALBUTEROL NEB SOLN 5 MG/ML 20 ML/BOTTLE CONT NEB SCH (10:30)
[2021-12-15 10:54] LABS: Basophils # 0.1 10*3/uL (0.0-0.2); Basophils % 1.3 % (0.0-0.8); Eosinophils # 1.1 10*3/uL (0.0-0.87); Eosinophils % 18.8 % (0.00-10.9); Hematocrit 40.7 VOL% (42.0-52.0); Immature Granulocytes % 0.2 %; Immature Granulocytes Absolute 0.01 #; Lymphocytes # 1.3 10*3/uL (1.4-4.0); Lymphocytes % 22.3 % (21.2-54.2); Mean Corpuscular HGB Conc 34.4 GM/DL (32-36); Mean Corpuscular Volume 92.9 FL (87-102); Mean Platelet Volume 11.3 FL (9.6-12.0); Monocytes # 0.7 10*3/uL (0.11-0.8); Monocytes % 12.1 % (1.7-12.7); Neutrophils % 45.3 % (38.7-73.9); Platelet Count 133 T/CUMM (130-400); Red Blood Count 4.38 MC/CUMM (3.8-5.5); Red Cell Distribution Width 12.9 % (9.3-17.3)
[2021-12-15 11:16] LABS: Eosinophils 11 % (0-10); Lymphocytes 24 % (20-55); Platelet Estimate Adequate; Total Cells Counted 100
[2021-12-15 11:22] LABS: Albumin 3.9 G/DL (3.4-5.0); Bilirubin,Total 0.6 MG/DL (0.20-1.00); Calcium 9.1 MG/DL (8.5-10.1); Potassium 4.4 MMOL/L (3.5-5.1); Total Protein 7.5 G/DL (6.4-8.2)
[2021-12-15] MEDS ORDERED: ALBUTEROL/IPRATROPIUM 3 ML NEB RESP TX STA (11:55)
[2021-12-15] MEDS ORDERED: hydrALAZINE 20 MG/1 ML VIAL IV STA (12:24)
[2021-12-15] MEDS ORDERED: hydrALAZINE 20 MG/1 ML VIAL IV PRN (13:14)
[2021-12-15] MEDS ORDERED: ACETAMINOPHEN 325 MG TABLET PO PRN (13:14)
[2021-12-15] MEDS ORDERED: DOCUSATE SODIUM 100 MG CAPSULE PO PRN (13:14)
[2021-12-15] MEDS ORDERED: ALBUTEROL 2.5 MG/3 ML NEB RESP TX PRN (13:14)
[2021-12-15] MEDS ORDERED: CALCIUM CARBONATE CHEW 500 MG TABLET PO PRN (13:14)
[2021-12-15] MEDS ORDERED: ALUMINUM/MAGNES/SIMETH MAX STR 30 ML UDCUP PO PRN (13:14)
[2021-12-15] MEDS ORDERED: LACTULOSE 20 GM/30 ML UDCUP PO PRN (13:14)
[2021-12-15] MEDS ORDERED: ONDANSETRON 4 MG/2 ML VIAL IV PRN (13:14)
[2021-12-15] MEDS ORDERED: FUROSEMIDE 20 MG/2 ML VIAL IV STA (13:35)
[2021-12-15] MEDS ORDERED: FUROSEMIDE 40 MG/4 ML VIAL IV STA (13:39)
[2021-12-15] MEDS: DOXYCYCLINE HYCLATE INJ 100 MG in SODIUM CHLORIDE 0.9% 100 ML IV SCH (14:08)
[2021-12-15] MEDS: carvediloL 25 MG TABLET PO SCH (18:12)
[2021-12-15] MEDS: methylPREDNISolone SOD SUC 125 MG/2 ML VIAL IV SCH (18:30)
[2021-12-15] MEDS: ALBUTEROL/IPRATROPIUM 3 ML NEB RESP TX SCH (19:05)
[2021-12-15] MEDS ORDERED: EZETIMIBE 10 MG TABLET PO SCH (21:00)
[2021-12-15] MEDS ORDERED: ROSUVASTATIN 20 MG TABLET PO SCH (21:00)
[2021-12-15] MEDS ORDERED: APIXABAN 5 MG TABLET PO SCH (21:00)
[2021-12-15] MEDS: APIXABAN 5 MG TABLET PO SCH (22:29)
[2021-12-16] MEDS: ALBUTEROL/IPRATROPIUM 3 ML NEB RESP TX SCH ×2 (00:11→07:10)
[2021-12-16] MEDS: DOXYCYCLINE HYCLATE INJ 100 MG in SODIUM CHLORIDE 0.9% 100 ML IV SCH (02:19)
[2021-12-16] MEDS: methylPREDNISolone SOD SUC 125 MG/2 ML VIAL IV SCH ×2 (02:20→12:19)
[2021-12-16 06:18] LABS: Hematocrit 40.8 VOL% (42.0-52.0); Immature Granulocytes % 0.4 %; Immature Granulocytes Absolute 0.03 #; Lymphocytes # 0.7 10*3/uL (1.4-4.0); Lymphocytes % 9.2 % (21.2-54.2); Mean Corpuscular HGB Conc 34.3 GM/DL (32-36); Mean Corpuscular Volume 92.7 FL (87-102); Mean Platelet Volume 11.9 FL (9.6-12.0); Monocytes # 0.2 10*3/uL (0.11-0.8); Monocytes % 3.2 % (1.7-12.7); Neutrophils % 87.2 % (38.7-73.9); Platelet Count 131 T/CUMM (130-400); Red Cell Distribution Width 12.9 % (9.3-17.3); White Blood Count 7.2 T/CUMM (4-12)
[2021-12-16 06:46] LABS: Platelet Estimate Adequate
[2021-12-16 07:00] LABS: Potassium 3.9 MMOL/L (3.5-5.1); Risk Ratio 1.3; VLDL Cholesterol 3.4 MG/DL
[2021-12-16] MEDS: carvediloL 25 MG TABLET PO SCH (08:16)
[2021-12-16] MEDS: APIXABAN 5 MG TABLET PO SCH (08:17)
[2021-12-16] MEDS ORDERED: CLOPIDOGREL 75 MG TABLET PO SCH (09:00)
[2021-12-16] MEDS ORDERED: NON-FORMULARY MEDICATION (Tiotropium Bromide [Spiriva With Handihaler] 18 mcg Capsule, W/I INH SCH (09:00)
[2021-12-16] MEDS ORDERED: FUROSEMIDE 20 MG TABLET PO SCH (09:00)
[2021-12-16] MEDS ORDERED: OLMESARTAN 5 MG TABLET PO SCH (09:00)
[2021-12-16] MEDS ORDERED: ASPIRIN EC 81 MG TABLET PO SCH (09:00)
[2021-12-16] MEDS ORDERED: PANTOPRAZOLE 40 MG TABLET PO SCH (09:00)
[2021-12-16 12:16] VITALS: BP 161/71
== END 2021-12-16 12:50 | disposition home or self-care (01) ==
LOC: N.ED 09:47 → N.EDINP 09:47 → N.2W 15:28
PROVIDERS: ADMIT Family Medicine; ATTEND Family Medicine

== ENCOUNTER 2022-01-02 00:38 | Observation (INO) ==
[2022-01-02] MEDS ORDERED: hydrALAZINE 20 MG/1 ML VIAL IV PRN (01:58)
[2022-01-02] MEDS ORDERED: MORPHINE 2 MG/1 ML SYRINGE IV PRN (01:58)
[2022-01-02] MEDS ORDERED: ALBUTEROL 2.5 MG/3 ML NEB RESP TX PRN (01:58)
[2022-01-02] MEDS ORDERED: DIAZEPAM 10 MG/2 ML SYRINGE IV PRN (02:15)
[2022-01-02 02:38] LABS: Basophils % 0.5 % (0.0-0.8); Eosinophils % 0.5 % (0.00-10.9); Hematocrit 40.6 VOL% (42.0-52.0); Hemoglobin 13.7 GM/DL (14.0-18.0); Immature Granulocytes % 0.3 %; Immature Granulocytes Absolute 0.01 #; Lymphocytes # 0.6 10*3/uL (1.4-4.0); Mean Corpuscular HGB Conc 33.7 GM/DL (32-36); Mean Corpuscular Volume 93.5 FL (87-102); Mean Platelet Volume 10.9 FL (9.6-12.0); Monocytes # 0.1 10*3/uL (0.11-0.8); Monocytes % 1.3 % (1.7-12.7); Neutrophils % 82.4 % (38.7-73.9); Platelet Count 125 T/CUMM (130-400); Red Blood Count 4.34 MC/CUMM (3.8-5.5); Red Cell Distribution Width 13.3 % (9.3-17.3); White Blood Count 3.8 T/CUMM (4-12)
[2022-01-02] MEDS: ACETAMINOPHEN 325 MG TABLET PO PRN ×2 (02:47→08:13)
[2022-01-02 03:00] LABS: Albumin 3.7 G/DL (3.4-5.0); Bilirubin,Total 0.5 MG/DL (0.20-1.00); Calcium 9.1 MG/DL (8.5-10.1); Osmolality,Calculated 279.7 MOS/KG (273-304); Total Protein 7.6 G/DL (6.4-8.2)
[2022-01-02] MEDS: OSELTAMIVIR 75 MG CAPSULE PO SCH ×2 (03:50→08:11)
[2022-01-02] MEDS: methylPREDNISolone SOD SUC 40 MG/1 ML VIAL IV SCH ×2 (06:02→13:44)
[2022-01-02] MEDS: ALBUTEROL/IPRATROPIUM 3 ML NEB RESP TX SCH ×2 (07:05→13:07)
[2022-01-02] MEDS ORDERED: PANTOPRAZOLE 40 MG TABLET PO SCH (09:00)
[2022-01-02] MEDS ORDERED: CLOPIDOGREL 75 MG TABLET PO SCH (09:00)
[2022-01-02] MEDS ORDERED: APIXABAN 5 MG TABLET PO SCH (09:00)
[2022-01-02] MEDS ORDERED: MULTIVITAMIN (CENTRUM) TABLET PO SCH (09:00)
[2022-01-02] MEDS ORDERED: FOLIC ACID 1 MG TABLET PO SCH (09:00)
[2022-01-02] MEDS ORDERED: THIAMINE 100 MG TABLET PO SCH (09:00)
[2022-01-02] MEDS ORDERED: carvediloL 25 MG TABLET PO SCH (09:00)
[2022-01-02] MEDS ORDERED: AZITHROMYCIN 250 MG TABLET PO SCH (10:00)
[2022-01-02 12:21] VITALS: BP 148/77
[2022-01-02] MEDS ORDERED: EZETIMIBE 10 MG TABLET PO SCH (21:00)
== END 2022-01-02 16:00 | disposition home or self-care (01) ==
LOC: N.TELEN 00:38 → INTOOBSV 00:38 → SUATTDRO 00:38
PROVIDERS: ADMIT Internal Medicine; ATTEND Emergency Medicine